=== PATIENT | female | born 1950 | race Caucasian/White ===

== ENCOUNTER 2021-03-21 14:44 | Emergency (ER) | payer MEDICARE, SELFPAY ==
--- NOTE | ~2021-03-21 | XR_ITS ---
XR hip LT 2V w AP pelvis 03/21/2021 17:02 INDICATION: Acute pain after fall PROCEDURE: 3 views left hip including AP pelvis COMPARISON: No prior studies for comparison. FINDINGS: Fracture, dislocation or subluxation is not identified. Pelvic rings intact. Sacral foramen are symmetric. There are degenerative changes of the lower lumbar spine and hips. The soft tissues a ppear within normal limits. No foreign bodies are identified. IMPRESSION: 1: NO ACUTE BONE OR JOINT ABNORMALITY IDENTIFIED. Reviewed, dictated and finalized at location A.
--- NOTE | ~2021-03-21 | XR_ITS ---
[XR ribs LT 2V w CXR 2V ] INDICATION: Left rib pain after fall TECHNIQUE: Frontal projection of the upper left ribs, frontal projection of the lower left ribs, obli que projection of all the left ribs, frontal inspiratory chest x-ray for interpretation. FINDINGS: There are no acute displaced rib fractures identified. There is a healed left eighth rib f racture. There is moderate thoracic spondylosis with accentuated kyphosis. There are no soft tissue a bnormality seen. The lungs are clear. IMPRESSION: 1:No acute displaced rib fractures. Reviewed, dictated and finalized at location A.
--- NOTE | ~2021-03-21 | CT_ITS ---
EXAMINATION: CT brain wo con DATE: 03/21/2021 16:40 INDICATION: Head trauma. Laceration. Parkinson's disease. TECHNIQUE: Computed tomography (CT) of the head was performed without intravenous contrast. The dose- length product was 605.33 mGy-cm. Automated exposure control and iterative reconstruction technique w ere employed. COMPARISON: CT dated 10/29/2018 FINDINGS: Brain parenchymal volume is normal for age. There are scattered mild periventricular and edwards bcortical white matter changes, most likely related to small vessel ischemic disease (microangiopathy ). No ventriculomegaly or midline shift. 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 No acute intracranial hemorrhage, infarction, mass or mass effect. There is a chronic lacunar infarction of t he right subinsular white matter. There is moderate mucosal thickening of the paranasal sinuses with mucoperiosteal reaction. Mastoids are pneumatized. No depressed skull fractures. IMPRESSION: 1. No acute intracranial abnormality. 2: Moderate chronic sinus disease. 3: Chronic right lacunar infarction. 4: Chronic age-related findings. Reviewed, dictated and finalized at location A.
[2021-03-21 15:38] VITALS: BP 143/108; PULSE 71; RESP 16; TEMP 36.9; O2SAT 96
--- NOTE | 2021-03-21 18:43 | ED.GENADULT ---
HPI - General Adult General Chief complaint: Head Injury Stated complaint: fall, head trauma Time Seen by Provider: 03/21/21 16:15 History of Present Illness HPI narrative: Patient is a 70-year-old female who presents ER with concerns for a fall. Patient has Parkinson's and was walking with a rolling walker when she fell. She struck her head. No loss of consciousness. She has a 1 cm laceration to her posterior scalp. Patient is shaking very violently as she has not yet taken her Parkinson's medications. She also reports left chest wall pain that is worse with moving and deep breaths. She also is reporting some left hip pain but there is no shortening or rotation. Related Data Allergies Allergy/AdvReac Type Severity Reaction Status Date / Time Penicillins Allergy Unknown Verified 07/09/17 18:55 codeine AdvReac Unknown Verified 07/09/17 18:55 Review of Systems Review of Systems: All systems reviewed & are unremarkable except as noted in HPI and below Constitutional: Constitutional: Denies chills, Denies fever(s) and Denies weakness Cardiovascular: Cardiovascular: Denies rapid heart rate and Denies radiating jaw, neck or arm pain Comments: Chest wall pain Gastrointestinal: Gastrointestinal: Denies abdominal pain, Denies nausea and Denies vomiting Musculoskeletal: Musculoskeletal: Denies back pain, Reports arthralgias and Denies joint swelling Neurologic: Denies focal weakness, Denies numbness and Denies weakness Comments: Diffuse tremors. [facility] Past Medical History Medical History (Updated 03/21/21 @ 19:01 by Brett Calderon MD) Parkinsons disease Surgical History Surgical History (Updated 03/21/21 @ 19:02 by Brett Calderon MD) History of splenectomy Hx of tonsillectomy Social History Social History (Updated 03/21/21 @ 19:03 by Brett Calderon MD) Smoking status: Never smoker Exam Narrative: GENERAL: Chronically ill-appearing, well-nourished, and diffusely tremulous. HEAD: Normocephalic, severe posterior scalp laceration. EYES: PERRL and EOMI. CHEST: Clear to auscultation. No respiratory distress. Contusion abrasion left chest wall. HEART: Regular rate and rhythm. Normal peripheral pulses. EXTREMITIES: Normal range of motion. No edema. SKIN: Warm, dry, no rash. NEURO: Parkinsonian tremor in arms and legs. Alert and oriented x3. PSYCH: Normal mood and affect. Course Course Emergency Course: Wound repaired. Discharge home. Vital Signs Vital signs: Vital Signs Temperature 98.5 F 03/21/21 15:38 Pulse Rate 71 03/21/21 15:38 Respiratory Rate 16 03/21/21 15:38 Blood Pressure 143/108 H 03/21/21 15:38 Pulse Oximetry 96 03/21/21 15:38 Temperature 98.5 F 03/21/21 15:38 Pulse Rate 71 03/21/21 15:38 Respiratory Rate 16 03/21/21 15:38 Blood Pressure 143/108 H 03/21/21 15:38 Pulse Oximetry 96 03/21/21 15:38 Procedures Laceration Laceration 1: Date: 03/21/21 Time: 18:00 Site: scalp Size (cm): 1 Description: linear Depth: simple, single layer Local Anesthetic: none ====== Skin Level ====== Skin layer closed with: aki Number of sutures: 1 Technique: simple, interrupted ====== Subcutaneous Layer ====== ====== Muscle Layer ====== ====== Tendon Layer ====== Medical Decision Making Vital Signs Vital Signs: Vital Signs Temperature 98.5 F 03/21/21 15:38 Pulse Rate 71 03/21/21 15:38 Respiratory Rate 16 03/21/21 15:38 Blood Pressure 143/108 H 03/21/21 15:38 Pulse Oximetry 96 03/21/21 15:38 Temperature 98.5 F 03/21/21 15:38 Pulse Rate 71 03/21/21 15:38 Respiratory Rate 16 03/21/21 15:38 Blood Pressure 143/108 H 03/21/21 15:38 Pulse Oximetry 96 03/21/21 15:38 Discharge Plan Discharge Clinical Impression: Laceration of scalp, Chest wall contusion Patient Disposition: Home, Self-Care Condition: Stable Inst
== END 2021-03-21 19:16 | disposition home or self-care (01) ==
PROVIDERS: Emergency Provider Emergency Medicine; PCP Family Medicine
DX: S01.01XA Laceration without foreign body of scalp, initial encounter (principal); S20.212A Contusion of left front wall of thorax, initial encounter; G20 Parkinson's disease; Z90.81 Acquired absence of spleen; W18.39XA Other fall on same level, initial encounter
CPT/HCPCS: 12001; 70450; 71046; 71100; 73502; 99284

== ENCOUNTER 2021-11-23 20:19 | Emergency (ER) | payer OTHER, SELFPAY ==
[2021-11-23 20:46] VITALS: BP 100/57; PULSE 84; RESP 16; TEMP 36.6; O2SAT 98
[2021-11-23] MEDS: LIDOCAINE HCL 2% GEL UROJET 10 ML PKG MUCOUS MEM (21:46)
--- NOTE | 2021-11-23 22:42 | ED.WOUNDLAC ---
HPI - Wound/Laceration General Chief Complaint: Fall Stated Complaint: fall with laceration to buttock Time Seen by Provider: 11/23/21 21:32 History of Present Illness HPI narrative: 70-year-old female presenting after she slipped and fell onto her walker, the metal prong punctured her anus. Noted some bleeding, and came here. Denies any injuries anywhere else, denies any pain at this time. Related Data Allergies Allergy/AdvReac Type Severity Reaction Status Date / Time Penicillins Allergy Unknown Verified 07/09/17 18:55 codeine AdvReac Unknown Verified 07/09/17 18:55 Review of Systems Review of Systems: CONST: No fever. HEAD: No head trauma EYES: No blurry vision NECK: No neck pain C/V: No chest pain RESP: No difficulty breathing GI: Cut to anus : No dysuria. M/S: No joint pain. SKIN: Cut to anus NEURO: [No new focal numbness or weakness] PMFSH Past Medical History Medical History Parkinsons disease Surgical History Surgical History History of splenectomy Hx of tonsillectomy Social History Social History Smoking status: Never smoker Exam Narrative: EXAMINATION OF ORGAN SYSTEMS/BODY AREAS: Constitutional: Vital signs per nursing GENERAL:[No acute distress, non-toxic appearing.] HEAD: Normal with no signs of head trauma. NECK: no midline tenderness LUNGS: Nonlabored breathing. HEART: No chest tenderness ABD: [Soft], [nontender to palpation] EXT: Normal range of motion RECTAL: No tenderness on exam or puncture of rectal vault SKIN: 1cm linear laceration superior aspect of anus, superficial mucosa not penetrating sphincter NEURO: [Alert and oriented x 3. Very tremulous.] PSYCH: Normal affect Course Course Emergency Course: New 1-year-old female presenting with cut to her anus after falling on it, vital signs stable, exam shows superficial laceration to anus, low concern for nonaccidental trauma as patient herself verifies the story, given the gaping wound and my concern for infection I did feel it would benefit from closure, it is irrigated and well cleaned with chlorhexidine, skin glue used and wound well approximated. Patient tolerated procedure well, strict return precautions provided as well as how to care for anal fissure. Stable for discharge home and follow-up with her doctor as needed. Vital Signs Vital signs: Vital Signs Temperature 97.8 F 11/23/21 20:46 Pulse Rate 84 11/23/21 20:46 Respiratory Rate 16 11/23/21 20:46 Blood Pressure 100/57 L 11/23/21 20:46 Pulse Oximetry 98 11/23/21 20:46 Temperature 97.8 F 11/23/21 20:46 Pulse Rate 84 11/23/21 20:46 Respiratory Rate 16 11/23/21 20:46 Blood Pressure 100/57 L 11/23/21 20:46 Pulse Oximetry 98 11/23/21 20:46 Discharge Plan Discharge Clinical Impression: Anal sphincter tear Qualifiers: Encounter type: initial encounter Qualified Code(s): S31.831A - Laceration without foreign body of anus, initial encounter Patient Disposition: Home, Self-Care Condition: Improved Instructions: Antibiotic Form, Anal Fissure (ED), Laceration (ED) Prescriptions: New polyethylene glycol 3350 [Miralax] 17 gram/dose powder 17 g PO DAILY Qty: 238 RF: 0 Follow-up/Referrals: Nikolai,Emeka Dale MD [Primary Care Provider] -
== END 2021-11-23 23:02 | disposition home or self-care (01) ==
PROVIDERS: Emergency Provider Emergency Medicine; PCP Family Medicine
DX: S31.831A Laceration without foreign body of anus, initial encounter (principal); Z90.81 Acquired absence of spleen; W01.198A Fall on same level from slipping, tripping and stumbling with subsequent striking against other object, initial encounter
CPT/HCPCS: 12001; 99283

== ENCOUNTER 2022-07-05 09:41 | Emergency (ER) | payer OTHER, SELFPAY ==
[2022-07-05] VITALS (32 sets, daily range): BP systolic 98–168; BP diastolic 57–129; PULSE 55–97; RESP 16–29; TEMP 36.9; O2SAT 88–99
--- NOTE | ~2022-07-05 | CT_ITS ---
EXAMINATION: CT brain wo con DATE: 07/05/2022 14:45 INDICATION: fall . TECHNIQUE: Computed tomography (CT) of the head was performed without intravenous contrast. The mA wa s adjusted according to patient size. Iterative reconstruction technique was employed. The dose-lengt h product was 605.33 mGy-cm. COMPARISON: 03/21/2021. FINDINGS: No acute intracranial hemorrhage or extra-axial fluid collection. No hydrocephalus, mass, or herniation. No acute ischemic infarct. Unremarkable dural venous sinus attenuation. No acute osseous abnormality. The aerated spaces are clear. Mild atrophy and chronic white matter change. Atherosclerotic intracranial calcification. Basilar dol ichoectasia. Right insular encephalomalacia. IMPRESSION: No acute intracranial process. Reviewed, dictated and finalized at location K. OON ARTIST
--- NOTE | ~2022-07-05 | XR_ITS ---
EXAMINATION: XR chest 1V portable DATE: 07/05/2022 10:43 INDICATION: Syncope. Parkinson's disease. TECHNIQUE: frontal view of the chest was obtained. COMPARISON: Chest radiograph dated 03/21/2021 FINDINGS: Patient is rotated towards the right. Chronic pleural parenchymal scarring at the left costophrenic a ngle alongside old left-sided rib fractures. No other airspace opacities, pulmonary edema, pleural ef fusion or pneumothorax. Cardiomegaly. Proximal right humeral fracture with malunion and severe second harini glenohumeral osteoarthritis. IMPRESSION: 1. Chronic mild pleural parenchymal scarring at the left costophrenic angle. No acute cardiopulmonary disease. Reviewed, dictated and finalized at location A. F WHARFINGER
--- NOTE | 2022-07-05 10:24 | ECG_ITS ---
Measurements Intervals [place] Rate: 60 P: 28 MA: 131 QRS: 26 QRSD: 92 T: 31 QT: 417 QTc: 419 Interpretive Statements SINUS RHYTHM NORMAL ECG NO PREVIOUS ECG AVAILABLE FOR COMPARISON Electronically Signed On 07-05-2022 15:52:08 [employer]ER GRINDER by Faisal Elizalde M.D.
[2022-07-05] MEDS: SODIUM CHLORIDE 0.9% IV 1,000 ML 999 ML IV CONT (10:39)
--- NOTE | 2022-07-05 10:45 | ED.SYNCOPE ---
HPI - Syncope General Chief Complaint: Syncope Stated Complaint: near syncope Time Seen by Provider: 07/05/22 10:06 History of Present Illness HPI narrative: Patient is a 71-year-old female with a history of Parkinson's presenting after a syncopal episode. Patient states that she was sitting when she became nauseated and felt generally weak. According to her family she then slumped forward and slowly fell to the ground. Her states that she seemed confused as they helped her up so they called EMS. By the time EMS arrived, she was back to her normal mental status and was without complaint. Patient states that she does not currently feel nauseated. She denies any chest pain, shortness of breath, palpitations. Denies recent fevers or chills, headache, numbness or weakness, abdominal pain, vomiting, diarrhea, leg swelling, dysuria. Related Data Allergies Allergy/AdvReac Type Severity Reaction Status Date / Time Penicillins Allergy Unknown Verified 07/09/17 18:55 codeine AdvReac Unknown Verified 07/09/17 18:55 Review of Systems Review of Systems: All systems reviewed & are unremarkable except as noted in HPI and below PMFSH Past Medical History Medical History Parkinsons disease Surgical History Surgical History History of splenectomy Hx of tonsillectomy Social History Social History Smoking status: Never smoker Exam Narrative: GENERAL: Elderly female lying in bed with parkinsonian movements HEAD: Normocephalic, atraumatic. EYES: PERRLA and EOMI. ENT: Nares clear, no rhinorrhea or epistaxis. Mucous membranes dry. NECK: Supple. CHEST: Clear to auscultation. No respiratory distress. HEART: Regular rate and rhythm. No murmur heard. Normal peripheral pulses. ABDOMEN: Soft, nontender, nondistended, normal active bowel sounds. EXTREMITIES: Normal range of motion. No edema. SKIN: Warm, dry, no rash. NEURO: No focal deficits. Alert and oriented x3. PSYCH: Normal mood and affect. Course Vital Signs Vital signs: Vital Signs Temperature 98.5 F 07/05/22 09:52 Pulse Rate 63 07/05/22 09:52 Respiratory Rate 20 07/05/22 09:52 Blood Pressure 98/64 L 07/05/22 09:52 Pulse Oximetry 96 07/05/22 09:52 Oxygen Delivery Room Air 07/05/22 09:52 Temperature 98.5 F 07/05/22 09:52 Pulse Rate 60 07/05/22 15:31 Respiratory Rate 20 07/05/22 15:31 Blood Pressure 120/71 07/05/22 15:31 Pulse Oximetry 98 07/05/22 15:31 Oxygen Delivery Room Air 07/05/22 09:52 MDM - Syncope MDM Narrative Medical decision making narrative: Patient is a 71-year-old female presenting after a syncopal episode. Patient initially had some soft pressures in the 90s over 60s. Vitals were otherwise within normal limits. Patient does describe a prodrome prior to the syncopal episode characterized by some nausea and lightheadedness. She denies any chest pain or shortness of breath. EKG shows sinus rhythm, normal axis and intervals, no acute ischemic changes. Blood work is unremarkable. Patient received some fluids and her pressures are much improved. Patient feels well and denies recurrence of any symptoms. Advised that she try to increase her fluid intake. Suspect she had an episode of orthostatic hypotension versus vasovagal given the prodrome. Recommended close PCP follow-up. Appropriate return precautions were given. Patient voiced understanding is agreeable with plan. Discharged in stable condition. Lab Data 07/05/22 10:50 07/05/22 10:50 Labs: Lab Results 07/05/22 07/05/22 07/05/22 Range/Units 10:50 10:50 10:50 WBC 8.9 (4.5-10.0) K/mm3 RBC 4.03 L (4.2-5.4) M/mm3 Hgb 12.9 (12.0-15.0) g/dL Hct 38.1 (37.0-47.0) % MCV 94.5 (80-100) fl MCH 32.0 (26-34) pg MCHC 33.9
[2022-07-05 10:55] LABS: Basophils Percent Auto 0.3 % (0.2-1.2); Eosinophils Absolute Auto 0.2 K/mm3 (0-0.3); Eosinophils Percent Auto 2.3 % (0-4.4); Hematocrit 38.1 % (37.0-47.0); Hemoglobin 12.9 g/dL (12.0-15.0); Immature Granulocyte Absolute 0.03 K/mm3 (0.00-0.031); Immature Granulocyte Percent A 0.3 % (0-0.5); Lymphocytes Absolute Auto 0.74 K/mm3 (0.9-3.2); Lymphocytes Percent Auto 8.4 % (18.3-44.2); Mean Corpuscular HGB Conc 33.9 g/dl (32-36); Mean Corpuscular Volume 94.5 fl (80-100); Mean Platelet Volume 10.6 fl (7.4-10.4); Monocytes Absolute Auto 0.7 K/mm3 (0.1-0.6); Monocytes Percent Auto 7.5 % (2.6-8.5); Neutrophils Absolute Auto 7.2 K/mm3 (1.3-6.7); Neutrophils Percent Auto 81.2 % (45.5-73.1); Platelet Count Result 284 k/mm3 (150-375); Red Blood Count 4.03 M/mm3 (4.2-5.4); Red Cell Distribution Width 13.7 % (11.5-14.5); White Blood Count 8.9 K/mm3 (4.5-10.0)
[2022-07-05 11:10] LABS: Alanine Aminotransferase 7 U/L (6-35); Alkaline Phosphatase 64 U/L (38-126); Anion Gap 3 mmol/L (8-16); Aspartate Amino Transferase 17 U/L (14-36); Bilirubin,Total 0.8 mg/dL (0.2-1.3); Blood Urea Nitrogen 12 mg/dL (7-17); Calcium 8.8 mg/dL (8.4-10.2); Carbon Dioxide 32 mmol/L (22-30); Chloride 105 mmol/L (98-107); Estimated Glomerular Filt Rate > 60; Glucose 94 mg/dL (65-110); Lactic Acid Reflex 1.1 mmol/L (0.7-2.0); Magnesium 2.2 mg/dL (1.6-2.3); Potassium 3.8 mmol/L (3.4-5.0); Sodium 140 mmol/L (137-145)
[2022-07-05 11:16] LABS: INR 1.1; Partial Thromboplastin Time 26.9 SECONDS (22.3-36.8); Prothrombin Time 13.7 Seconds (11.1-14.7)
[2022-07-05 11:22] LABS: NT Pro B Type Natriuretic Pept 183 pg/mL (5-100); Troponin I < 0.012 ng/mL (0.000-0.034)
--- NOTE | 2022-07-05 12:57 | PC.NURSE ---
gave some apple sauce and pudding to accommodate pt needs for home Meds.
[2022-07-05 14:28] LABS: Add Urine Microscopic? NO; Appearance Urine Clear (Clear); Bilirubin Urine Negative (Negative); Blood Urine Negative (Negative); Color Urine Light Yellow (Yellow); Glucose Urine UA Negative (Negative); Ketones Urine Negative (Negative); Leukocyte Esterase Ur Negative LEU/UL (Negative); Nitrate Urine Negative (Negative); Protein Urine Negative (Negative)
== END 2022-07-05 17:12 | disposition home or self-care (01) ==
PROVIDERS: Emergency Provider Emergency Medicine; PCP Family Medicine
DX: R55 Syncope and collapse (principal); G20 Parkinson's disease
CPT/HCPCS: 36415; 70450; 71045; 80053; 81003; 83605; 83735; 83880; 84484; 85025; 85610; 85730; 93005; 96360; 99284; J7030

== ENCOUNTER 2022-11-05 10:31 | Emergency (ER) | payer OTHER, SELFPAY ==
[2022-11-05] VITALS (31 sets, daily range): BP systolic 84–161; BP diastolic 47–124; PULSE 57–97; RESP 17–35; TEMP 36.4–36.6; O2SAT 88–100
--- NOTE | ~2022-11-05 | XR_ITS ---
. EXAMINATION: XR hip RT 2V w AP pelvis INDICATION: Hip pain TECHNIQUE: AP view the pelvis and two views of the right hip are obtained. COMPARISON: 03/21/2021 FINDINGS: Bone alignment is normal. There is no fracture. There is mild osteoarthritis of the hips. M oderate spondylosis is noted in the lower lumbar spine. IMPRESSION: 1. No acute osseous abnormality. Reviewed, dictated and finalized at location L.
--- NOTE | ~2022-11-05 | CT_ITS ---
EXAMINATION: CT brain wo con INDICATION: Increased weakness COMPARISON: TECHNIQUE: Standard unenhanced head CT. The dose-length product (DLP) was 681.00 mGy-cm. The mA was a djusted according to patient size. Iterative reconstruction technique was employed. FINDINGS: There is no acute intraparenchymal hemorrhage. No evidence of mass lesion. No evidence of a cute infarction. There is an old right cerebellar infarct. There is mild periventricular and subcorti lori hypodensity probably related to small vessel ischemic disease. There is mild prominence of the edwards lci and ventricles related to cerebral atrophy. Intracranial calcified cerebral atherosclerosis is no diana. There are no extra-axial collections. There is no mass effect or midline shift. There is a polyp or mucous retention cyst right maxillary sinus. The visualized sinuses and mastoid air cells are wel l aerated. IMPRESSION: 1. No acute intracranial abnormality. 2. Age related findings. Reviewed, dictated and finalized at location L.
--- NOTE | 2022-11-05 10:40 | ECG_ITS ---
Measurements Intervals [place] Rate: 60 P: 8 IN: 134 QRS: 5 QRSD: 105 T: 30 QT: 429 QTc: 432 Interpretive Statements SINUS RHYTHM NONSPECIFIC ST AND T-WAVE ABNORMALITY BASELINE ARTIFACT PRESENT COMPARED TO ECG 07/05/2022 09:52:09 NO SIGNIFICANT CHANGES Electronically Signed On 11-05-2022 11:58:59 CDT by Verona Abernathy M.D.
[2022-11-05 10:56] LABS: Glucose Point of Care 118 mg/dl (65-105)
--- NOTE | 2022-11-05 11:04 | ED.WEAKNESS ---
HPI - Weakness General Chief complaint: Weakness Stated complaint: weakness Time Seen by Provider: 11/05/22 10:54 History of Present Illness HPI Narrative: 71-year-old female with a history of Parkinson's disease here for evaluation of weakness today. Patient lives at home with her who is her primary caregiver. She had been doing well until today when she had required maximal assistance with transfers and has been complaining of generalized weakness. She has had multiple falls at home over the past several weeks. Patient states that she feels generally ill, was having some right hip pain this morning that has since subsided. Has not been eating or drinking her normal amount. She has been compliant with her medicines. She states this is happened in the past and has been attributed to dehydration, states that she feels better after IV fluid administration. Related Data Allergies Allergy/AdvReac Type Severity Reaction Status Date / Time Penicillins Allergy Unknown Unknown Verified 11/05/22 10:52 codeine AdvReac Unknown Unknown Verified 11/05/22 10:52 Review of Systems Review of Systems: Gen.: Reports generalized weakness Eyes: Denies eye pain or visual change ENT: Denies congestion Respiratory: Denies shortness of breath or cough CV: Denies chest pain or palpitations GI: Denies abdominal pain nausea, emesis or diarrhea denies burning, urgency, frequency or hematuria Musculoskeletal: Denies back pain or muscle pain Neuro: Denies numbness, tingling, weakness or focal weakness Skin: Denies rash Except as documented, all other systems reviewed and negative [facility] Past Medical History Medical History Parkinsons disease Surgical History Surgical History History of splenectomy Hx of tonsillectomy Social History Social History Smoking status: Never smoker Exam Narrative: APPEARANCE: Chronically ill-appearing, resting tremor Head: Normocephalic and atraumatic. EYES: PERRLA/EOMI, conjunctivae clear NOSE: No nasal drainage EARS: External ear normal in appearance THROAT: Oropharynx is clear. Mucous membranes are moist. NECK: Supple. No adenopathy, no masses. RESPIRATORY: Airway patent, respirations nonlabored. Clear to auscultation bilaterally, no rales, rhonchi, wheezing. CARDIOVASCULAR: Regular rate and rhythm without murmurs, rubs, or gallops. ABDOMINAL: Normoactive bowel sounds. Soft, nontender, nondistended. No rebound tenderness or guarding. MUSCULOSKELETAL: Extremities are warm and well-perfused. Moves all extremities well. No edema. NEURO: Slurred speech, patient states is chronic. Resting tremor in the upper extremities and face. SKIN: Skin is warm and dry. No rashes. PSYCHIATRIC: Normal affect/mood. Course Vital Signs Vital signs: Vital Signs Temperature 97.8 F 11/05/22 10:33 Pulse Rate 94 11/05/22 10:33 Respiratory Rate 18 11/05/22 10:33 Blood Pressure 84/47 L 11/05/22 10:33 Pulse Oximetry 98 11/05/22 10:33 Oxygen Delivery Room Air 11/05/22 10:33 Temperature 97.6 F 11/05/22 14:54 Pulse Rate 77 11/05/22 15:37 Respiratory Rate 22 H 11/05/22 15:37 Blood Pressure 104/61 11/05/22 15:37 Pulse Oximetry 92 11/05/22 15:37 Oxygen Delivery Room Air 11/05/22 10:33 MDM - Weakness MDM Narrative Medical decision making narrative: 71-year-old female with a history of Parkinson's disease here with her who is her caregiver from home due to generalized weakness x1 day. Patient is chronically ill-appearing with resting tremulousness. BP initially slightly soft at 84/47, remainder of vital signs are normal. urine does appear infected. CT brain without acute findings. Basic labs unremarkable aside from an elevation in her BUN likely due to dehydration. Patient was starte
[2022-11-05 11:22] LABS: Basophils Percent Auto 0.3 % (0.2-1.2); Eosinophils Absolute Auto 0.1 K/mm3 (0-0.3); Eosinophils Percent Auto 1.3 % (0-4.4); Hematocrit 38.4 % (37.0-47.0); Hemoglobin 13.2 g/dL (12.0-15.0); Immature Granulocyte Absolute 0.02 K/mm3 (0.00-0.031); Immature Granulocyte Percent A 0.3 % (0-0.5); Lymphocytes Absolute Auto 0.76 K/mm3 (0.9-3.2); Lymphocytes Percent Auto 9.8 % (18.3-44.2); Mean Corpuscular HGB Conc 34.4 g/dl (32-36); Mean Corpuscular Hemoglobin 32.4 pg (26-34); Mean Corpuscular Volume 94.3 fl (80-100); Mean Platelet Volume 10.8 fl (7.4-10.4); Monocytes Absolute Auto 0.6 K/mm3 (0.1-0.6); Monocytes Percent Auto 7.9 % (2.6-8.5); Neutrophils Absolute Auto 6.2 K/mm3 (1.3-6.7); Neutrophils Percent Auto 80.4 % (45.5-73.1); Platelet Count Result 255 k/mm3 (150-375); Red Blood Count 4.07 M/mm3 (4.2-5.4); Red Cell Distribution Width 13.5 % (11.5-14.5); White Blood Count 7.7 K/mm3 (4.5-10.0)
[2022-11-05] MEDS: SODIUM CHLORIDE 0.9% IV 1,000 ML 999 ML IV CONT ×2 (11:28→12:32)
[2022-11-05 11:32] LABS: Lactic Acid Reflex 1.3 mmol/L (0.7-2.0)
[2022-11-05 11:33] LABS: Alanine Aminotransferase 9 U/L (6-35); Albumin Level 3.9 g/dL (3.5-5.1); Alkaline Phosphatase 51 U/L (38-126); Anion Gap 6 mmol/L (8-16); Aspartate Amino Transferase 19 U/L (14-36); Bilirubin,Total 1.2 mg/dL (0.2-1.3); Blood Urea Nitrogen 20 mg/dL (7-17); Calcium 9.1 mg/dL (8.4-10.2); Carbon Dioxide 31 mmol/L (22-30); Chloride 105 mmol/L (98-107); Estimated Glomerular Filt Rate > 60; Glucose 115 mg/dL (65-110); Potassium 3.6 mmol/L (3.4-5.0); Sodium 142 mmol/L (137-145)
[2022-11-05 11:52] LABS: Appearance Urine Clear (Clear); Bacteria Urine 4+ /hpf; Bilirubin Urine Negative (Negative); Blood Urine Negative (Negative); Color Urine Yellow (Yellow); Glucose Urine UA Negative (Negative); Ketones Urine Trace mg/dL (Negative); Leukocyte Esterase Ur 2+ LEU/UL (Negative); Need Manual Microscopic Reviewed; Nitrate Urine Negative (Negative); Protein Urine Trace mg/dL (Negative); RBC Urine 0-2 /hpf (0-2); Specific Grav Ur 1.015 (1.001-1.035); Squamous Epithelial Cell Urine None seen /hpf (Few); WBC Urine 21-50 /hpf
[2022-11-05 11:56] LABS: Add Urine Microscopic? YES
--- NOTE | 2022-11-05 12:10 | PC.NURSE ---
Pt's daughter called and states this has been an ongoing problem and would like pt to be admitted over night.
== END 2022-11-05 15:50 | disposition home or self-care (01) ==
PROVIDERS: Emergency Medicine; Emergency Provider Physician Assistant; PCP Family Medicine
DX: N39.0 Urinary tract infection, site not specified (principal); R53.1 Weakness; G20 Parkinson's disease; Z90.81 Acquired absence of spleen; R94.31 Abnormal electrocardiogram [ECG] [EKG]
CPT/HCPCS: 36415; 70450; 73502; 80053; 81001; 82948; 83605; 85025; 87040; 87086; 93005; 96361; 96365; 99284; J0696; J7030

== ENCOUNTER 2024-06-16 21:16 | Inpatient (IN) | payer MEDICARE, SELFPAY ==
[2024-06-16] VITALS (13 sets, daily range): BP systolic 39–137; BP diastolic 24–76; PULSE 68–136; RESP 16–31; TEMP 35.7–36.6; O2SAT 20–99
--- NOTE | ~2024-06-16 | CT_ITS ---
EXAMINATION: CT cervical spine wo con DATE: 06/17/2024 00:16 INDICATION: Neck injury. Fall. TECHNIQUE: Computed tomography (CT) of the cervical spine was performed without intravenous contrast. Automated exposure control and iterative reconstruction technique were employed. The dose-length pro duct was 67.90 mGy-cm. COMPARISON: CT cervical spine 08/27/2018 FINDINGS: There is a right pneumothorax. Bone alignment is normal. Vertebral body heights are normal. There is moderately decreased disc height at C5-C6 and mildly decreased disc height at C6-C7. The fo llowing disc levels are specifically discussed: C2-C3: There is no uncovertebral joint osteoarthritis. There is moderate bilateral facet joint osteoa rthritis. There is no neural foraminal stenosis. There is no central canal stenosis. C3-C4: There is mild right and moderate left uncovertebral joint osteoarthritis. There is moderate ri ght and severe left facet joint osteoarthritis. There is mild left neural foraminal stenosis. There i s no central canal stenosis. C4-C5: There is mild bilateral uncovertebral joint osteoarthritis. There is severe bilateral facet juan f int osteoarthritis. There is no neural foraminal stenosis. There is no central canal stenosis. C5-C6: There is moderate bilateral uncovertebral joint osteoarthritis. There is moderate right and se elaine left facet joint osteoarthritis. There is mild bilateral neural foraminal stenosis. There is mil d central canal stenosis. C6-C7: There is no uncovertebral joint osteoarthritis. There is mild right and moderate left facet juan f int osteoarthritis. There is no neural foraminal stenosis. There is mild central canal stenosis. C7-T1: There is no uncovertebral joint osteoarthritis. There is moderate bilateral facet joint osteoa rthritis. There is no neural foraminal stenosis. There is no central canal stenosis. IMPRESSION: 1. No fracture. 2. Moderate cervical spondylosis. 3. Right pneumothorax. Reviewed, dictated and finalized at location A. PER SETTER
--- NOTE | ~2024-06-16 | CT_ITS ---
EXAMINATION: CT chest abdomen pelvis wo con DATE: 06/17/2024 00:17 INDICATION: Cardiac arrest. TECHNIQUE: Computed tomography (CT) of the chest, abdomen, and pelvis was performed without intraveno us contrast. Automated exposure control and iterative reconstruction technique were employed. The dos e-length product was 233.58 mGy-cm. COMPARISON: None FINDINGS: CHEST CT: There is a moderate-sized right pneumothorax. There are patchy airspace opacities in right lung. Ther e is mild atelectasis in lingula. There are airspace opacities and volume loss in left lower lobe. No pleural effusion. The heart size is normal. There are coronary artery calcifications. No pericardial effusion. The endotracheal tube tip is in expected position. There is thoracic kyphosis and moderate spondylosis. There are old healed bilateral rib fractures. ABDOMEN/PELVIS CT: The liver is normal. The spleen is absent. The pancreas and adrenal glands are normal. There are hype rdense cysts in the kidneys measuring up to 12 mm on the right. There is an 18 mm cyst in right kidne y. The bladder is decompressed by a Rubin catheter. There are no dilated loops of bowel. The appendix is normal. There are no pathologically enlarged lymph nodes. There is no free intraperitoneal fluid. There is a central venous catheter tip in right common iliac vein. There is mild lumbar spondylosis. IMPRESSION: 1. Moderate-sized right pneumothorax. 2. Diffuse lung disease, consistent with pneumonia. Reviewed, dictated and finalized at location A. CE DEPARTMENT SECRETARY
--- NOTE | ~2024-06-16 | CT_ITS ---
CT brain wo con Ordering provider: Will Jason MD History: 73 years Female with . altered mental status . Comparison: September 07, 2022 Technique: CT of the head without contrast. Radiation reduction technique utilized.The dose-length pr oduct was 681 mGy-cm. FINDINGS: BRAIN PARENCHYMA AND CSF SPACES: Mild leukoaraiosis and diffuse cortical atrophy. Mild atheromatous d isease. 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 No midline shift, mass effect or hemorrhage. The br ain parenchyma and CSF spaces are otherwise normal. VISUALIZED PARANASAL SINUSES: Well aerated. MASTOIDS: Well aerated. BONES: The bones appear intact. SOFT TISSUES: Visualized nasopharynx is normal. Superficial soft tissues are normal. IMPRESSION: No acute intracranial findings. Reviewed, dictated and finalized at location A. Y LEVEL ELECTRICIAN
--- NOTE | ~2024-06-16 | XR_ITS ---
XR chest ET placement Ordering provider: Will Jason MD History: 73 years Female with . ET PLACEMENT . Comparison: June 16, 2024 at 9:24 PM. FINDINGS: MEDIASTINUM: The cardiac silhouette is slightly enlarged. Repositioning of the endotracheal tube with the tip above the danny by about 1.9 cm. LUNGS: Improved aeration of the left lung is noted. Opacification in the right lower lobe areas seen suggestive of pneumonia. Edema cannot be excluded. Lucency in the right costophrenic angle is still seen with still raises the possibility of pneumothor ax. Similar appearances seen in the right apical area. Follow-up advised. Repeat exam after 2 hours i s advised. OTHER: No free air under the diaphragm. Fracture in the ninth is seen which may be acute or old IMPRESSION: Lucency in the costophrenic angle. Similar appearances also seen in the right apical area. A repeat e xam in 2 hours is advised. Improved aeration of the left lung. Bilateral lower lobe pneumonia. Dr. Jason was notified with the result of the patient. 10:35 PM on June 16, 2024. Reviewed, dictated and finalized at location A. AMBASSADOR IMPRESSION: Lucency in the costophrenic angle. Similar appearances also seen in the right a pical area. A repeat exam in 2 hours is advised. Improved aeration of the left lung. Bilateral lower lobe pneumonia. Dr. Jason was notified with the result of the patient. 10:35 PM on June 16, 2024.
--- NOTE | ~2024-06-16 | XR_ITS ---
XR chest ET placement Ordering provider: Will Jason MD History: 73 years Female with . CARDIAC ARREST . Comparison: July 05, 2022 FINDINGS: MEDIASTINUM: The cardiac silhouette is slightly enlarged. The endotracheal tube is seen in the right main bronchus. Retraction is advised. LUNGS: Hyperinflated the right lung with Possibility of pneumothorax in the right costophrenic angle is not excluded.. Repeat exam after repositioning of the endotracheal tube is advised. Possibility of right apical pneumothorax also cannot be excluded. Near Complete opacification of the left lung is n oted which may indicate atelectasis versus pneumonia. Hyperinflation of the right lung is seen. OTHER: No free air under the diaphragm. IMPRESSION: Possible pneumothorax in the right costophrenic angle and apical area. Opacification of the left lung which may indicate atelectasis. Repositioning of the endotracheal tube is noted. Reviewed, dictated and finalized at location A. TEGIC ADVISOR IMPRESSION: Possible pneumothorax in the right costophrenic angle and apical area. Opacific ation of the left lung which may indicate atelectasis. Repositioning of the endotracheal tube is noted.
--- NOTE | ~2024-06-16 | XR_ITS ---
EXAMINATION: XR abdomen gastric tube insert DATE: 06/17/2024 06:06 INDICATION: Orogastric tube placement. TECHNIQUE: An upright view of the abdomen was obtained. COMPARISON: Chest single view at 2:08 AM FINDINGS: The lower abdomen is excluded. There are no dilated loops of bowel. The nasogastric tube ti p is in the stomach. There are airspace opacities in the mid and lower lung zones. No pleural effusio n. The endotracheal tube tip is 4.4 cm above the danny. There is gas in right chest wall. IMPRESSION: 1. Nasogastric tube tip in the stomach. 2. Airspace opacities in the mid and lower lung zones, consistent with pneumonia. Reviewed, dictated and finalized at location A. CART PEDDLER IMPRESSION: 1. Nasogastric tube tip in the stomach. 2. Airspace opacities in the mid and lower lung zones, consistent with pneumoni a.
--- NOTE | ~2024-06-16 | XR_ITS ---
EXAMINATION: XR chest-chest tube insert/pos DATE: 06/17/2024 02:13 INDICATION: Right pneumothorax. TECHNIQUE: A single frontal view of the chest was obtained. COMPARISON: Chest single view 06/16/2024 FINDINGS: There are patchy airspace opacities in all lung zones bilaterally. No pleural effusion or p neumothorax. A right-sided chest tube is noted. The heart size is normal. No fracture can tube tip is 2.7 cm above the danny. There are old healed bilateral rib fractures. There is an old healed fractu re of proximal right humerus. IMPRESSION: 1. No pneumothorax. Right-sided chest tube in expected position. 2. Diffuse lung disease, consistent with pneumonia. Reviewed, dictated and finalized at location A. MACHINE OPERATOR
--- NOTE | 2024-06-16 21:26 | PC.NURSE ---
upon patient arrival. et tube was shifted by edp dr. munoz due to unequal chest rise and fall and poor oxygen saturation. rt at bedside. edp dr. munoz adjusted ET tube at 2127. positive color change noted, et tube is 22 @ the lip. rt is mechanically being bagged. pt vital signs at 2134 were 140 HR, 98% BVM, 22RR, and bp of 73/50. pt acess is still IO. norepi was started per edp dr. munoz at 10mg through IO. edp dr. munoz stated a central line was to be placed. Iv established in the left forearm 18 guage. labs drawn at this time.
--- NOTE | 2024-06-16 21:39 | ECG_ITS ---
Test Date: 2024-06-16 21:56:52 Measurements Intervals [place] Rate: 126 P: 84 UT: 105 QRS: 14 QRSD: 99 T: 98 QT: 354 QTc: 513 Interpretive Statements SINUS TACHYCARDIA WITH SHORT UT INTERVAL WITH OCCASIONAL SUPRAVENTRICULAR PREMATURE COMPLEXES NONSPECIFIC T-WAVE ABNORMALITY No previous ECG available for comparison Electronically Signed On 06-17-2024 14:30:14 FLEXO OPERATOR by Sanjay Pinon M.D.
[2024-06-16 21:56] LABS: Hematocrit 29.5 % (37.0-47.0); Hemoglobin 8.8 g/dL (12.0-15.0); Immature Platelet Fraction Pct 7.1 % (0.9-11.2); Mean Corpuscular HGB Conc 29.8 g/dl (32-36); Mean Corpuscular Hemoglobin 19.9 pg (26-34); Mean Corpuscular Volume 66.6 fl (80-100); Mean Platelet Volume 10.3 fl (7.4-10.4); Platelet Count Result 257 k/mm3 (150-375); Red Blood Count 4.43 M/mm3 (4.2-5.4); Red Cell Distribution Width 23.1 % (11.5-14.5); White Blood Count 12.8 K/mm3 (4.5-10.0)
[2024-06-16] MEDS: NOREPINEPHRINE 8 MG/D5W 250 ML 8 MG/250 ML BAG 18.8 MG (21:59)
[2024-06-16] MEDS: SODIUM CHLORIDE 0.9% IV 1,000 ML 999 ML IV CONT (22:00)
[2024-06-16 22:09] LABS: Alanine Aminotransferase 18 U/L (6-35); Albumin Level 3.7 g/dL (3.5-5.1); Alkaline Phosphatase 76 U/L (38-126); Anion Gap 12 mmol/L (4-12); Aspartate Amino Transferase 30 U/L (14-36); Bilirubin,Total 1.2 mg/dL (0.2-1.3); Blood Urea Nitrogen 37 mg/dL (7-17); Calcium 9.5 mg/dL (8.4-10.2); Carbon Dioxide 23 mmol/L (22-30); Chloride 108 mmol/L (98-107); Estimated CRCL calculation 23 ml/min; Estimated Glomerular Filt Rate 49; Glucose 197 mg/dL (65-110); Potassium 3.4 mmol/L (3.4-5.0); Sodium 143 mmol/L (137-145)
[2024-06-16 22:10] LABS: Alveolar/Arterial O2 Gradient 589.6 mmHg; Base Excess ABG -4.3 mEq/l (+/-2.0); Fractional Inspired Oxygen 100 %; HCO3 ABG 22.5 mEq/l (22.0-26.0); Oxygen Content ABG 12.5 %vol (16.0-22.0); PCO2 ABG 49.1 mmHg (35.0-45.0); PO2 ABG 74.3 mmHg (80.0-100.0); PO2 FiO2 Ratio Arterial Blood 0.74 %; Total Hemoglobin 9.7 g/dL (12.0-18.0)
[2024-06-16 22:11] LABS: Device VENTILATOR; Modified Allen's Test Pass; Site Drawn RIGHT RADIAL
[2024-06-16 22:13] LABS: pH ABG 7.278 (7.350-7.450)
--- NOTE | 2024-06-16 22:13 | ED_ITS ---
HPI - General Adult General Chief complaint: Cardiac Arrest/CPR Stated complaint: post-arrest, intubated Time Seen by Provider: 06/16/24 21:51 History of Present Illness HPI narrative: Patient 73-year-old female who presents emergency department with chief complaint of post cardiac arrest. Patient has history of Parkinson's and has apparently been getting weaker lately patient was found slumped over by EMS and had not really been doing much activity for approximately 1 hour patient had no pulse when EMS arrived they started compressions and intubated the patient they had a difficult time getting any kind of saturations they did have positive end- tidal CO2 the patient had return of spontaneous circulation after receiving epi and CPR patient was unresponsive upon arrival to the emergency department Related Data Allergies Allergy/AdvReac Type Severity Reaction Status Date / Time Penicillins Allergy Unknown Unknown Verified 11/05/22 10:52 codeine AdvReac Unknown Unknown Verified 11/05/22 10:52 Review of Systems Review of Systems: A 10 system review of systems was completed on the patient and is negative except for what is stated in the HPI. Nursing and ancillary documentation was reviewed. [facility] Past Medical History Medical History Parkinsons disease Surgical History Surgical History History of splenectomy Hx of tonsillectomy Social History Social History Smoking status: Never smoker Exam Narrative: GENERAL: Unresponsive endotracheal tube in place HEAD: Normocephalic, atraumatic. EYES: Fix. ENT: Nares clear, no rhinorrhea or epistaxis. Mucous membranes moist. NECK: Supple. CHEST: Clear to auscultation. No respiratory distress. HEART: Regular rate and rhythm. No murmur heard. Normal peripheral pulses. ABDOMEN: Soft, nontender, nondistended, normal active bowel sounds. EXTREMITIES: Normal range of motion. No edema. SKIN: Warm, dry, no rash. NEURO: Unresponsive intubated PSYCH: Unable to assess Course Vital Signs Vital signs: Vital Signs Pulse Rate 135 H 06/16/24 21:15 Pulse Oximetry 98 06/16/24 21:15 Oxygen Delivery Mechanical Ventilation 06/16/24 21:15 Fraction of Inspired Oxygen 100 06/16/24 21:15 Temperature 37.6 C H 06/17/24 02:13 Pulse Rate 118 H 06/17/24 02:13 Respiratory Rate 20 06/17/24 02:13 Blood Pressure 111/71 06/17/24 02:13 Pulse Oximetry 95 06/17/24 02:13 Oxygen Delivery Mechanical Ventilation 06/16/24 23:15 Fraction of Inspired Oxygen 100 06/16/24 23:15 Procedures Central Line Placement Right Femoral: Central Line Date: 06/16/24 Central Line Time: 22:16 Performed Emergently - Given emergent patient condition, temporal constraints may have precluded informed consent.: Yes Time Out Performed: Yes Patient Placed on Monitor/Pulse Ox: Yes Max. Sterile Barrier Technique: Caps, large sterile sheet and hand hygiene Central Line Prep: 2% chlorhexidine scrub and sterile drapes applied Technique: seldinger Local Anesthetic: none Central Line Lumen Inserted: triple Post Procedure: sutured in place, good blood return, all ports aspirated, flushed, capped and sterile dressing applied Patient Tolerated Procedure: well and no complications Complications: none Chest Tube Chest Tube 1: Chest Tube Date: 06/17/24 Chest Tube Time: 03:30 Chest Tube Location: right, mid axillary line and fourth interspace Tube Type: cook cath Chest Tube Prep: Yes betadine prep and sterile drapes applied Anesthetic: none Incision Made With: #11 blade Procedure: seldinger technique Post Procedure: sterile dressing applied, connected to Pluero Vac and connected to Heimlich Tube Drainage: daily of air Amount of initial drainage (mL): 0 Post Procedure: post CXR reviewed and pneumo resolved Patient Tolerated Procedure: Yes Medical Decision Making MDM Narrative Medical decision making narrative: The patient has been right mainstem intubated by EMS pre-hospital. Endotracheal tube was repositioned and chest x-ray was read he repeated showing improved aeration in the left lung. A right femoral triple-lumen central line was placed and Levophed was started to improve the patient's blood pressure. Thirty per kilos of normal saline boluses were started the patient was started on a fentanyl and Versed drip for sedation. Vital Signs Vital Signs: Vital Signs Pulse Rate 135 H 06/16/24 21:15 Pulse Oximetry 98 06/16/24 21:15 Oxygen Delivery Mechanical Ventilation 06/16/24 21:15 Fraction of Inspired Oxygen 100 06/16/24 21:15 Temperature 37.6 C H 06/17/24 02:13 Pulse Rate 118 H 06/17/24 02:13 Respiratory Rate 20 06/17/24 02:13 Blood Pressure 111/71 06/17/24 02:13 Pulse Oximetry 95 06/17/24 02:13 Oxygen Delivery Mechanical Ventilation 06/16/24 23:15 Fraction of Inspired Oxygen 100 06/16/24 23:15 Lab Data 06/16/24 21:49 06/16/24 21:49 Labs: Lab Results 06/16/24 06/16/24 06/16/24 Range/Units 21:49 22:00 22:18 WBC 12.8 H (4.5-10.0) K/mm3 RBC 4.43 (4.2-5.4) M/mm3 Hgb 8.8 L D (12.0-15.0) g/dL Hct 29.5 L (37.0-47.0) % MCV 66.6 L (80-100) fl MCH 19.9 L (26-34) pg MCHC 29.8 L (32-36) g/dl RDW 23.1 H (11.5-14.5) % Plt Count 257 (150-375) k/mm3 MPV 10.3 (7.4-10.4) fl Immature Gran % (Auto) Not Reportable Neut % (Auto) Not Reportable Lymph % (Auto) Not Reportable Mckenzie % (Auto) Not Reportable Eos % (Auto) Not Reportable Baso % (Auto) Not Reportable Lymph # (Auto) Not Reportable Mckenzie # (Auto) Not Reportable Eos # (Auto) Not Reportable Baso # (Auto) Not Reportable Abs Immat Gran (auto) Not Reportable Absolute Neuts (auto) Not Reportable Absolute Nucleated RBC Not Reportable Total Counted 100 Neutrophils % (Manual) 81 H (46-73) % Band Neutrophils % 13 H (0-6) % Lymphocytes % (Manual) 2.0 L (18-44) % Monocytes % (Manual) 4 (3-9) % Nucleated RBC % Not Reportable Abs Neuts (Manual) 12.03 H (1.7-7.2) K/mm3 Abs Lymphs (Manual) 0.25 L (1.1-4.5) K/mm3 Abs Monocytes (Manual) 0.51 (0.1-0.90) K/mm3 Platelet Estimate Adequate (Adequate) % Immature Plt Fraction 7.1 (0.9-11.2) % Anisocytosis 2+ Ovalocytes 1+ Crenated Cell 1+ Schistocytes Rare PT 16.5 H (11.1-14.7) Seconds INR 1.3 APTT 26.9 (22.3-36.8) Seconds Minute Volume Not Reportable Vent Mode Cmv Tidal Volume 360 ml PEEP 5 cmH2O Peak Inspir Pressure Not Reportable Pressure Support Not Reportable Sodium 143 (137-145) mmol/L Potassium 3.4 (3.4-5.0) mmol/L Chloride 108 H (98-107) mmol/L Carbon Dioxide 23 (22-30) mmol/L Anion Gap 12 (4-12) mmol/L BUN 37 H D (7-17) mg/dL Creatinine 1.10 H (0.7-1.0) mg/dL Estim Creat Clear Calc 23 ml/min Estimated GFR 49 L (59 - ) Glucose 197 H (65-110) mg/dL POC Capillary Glucose 152 H (65-105) mg/dl Lactic Acid (0.7-2.0) mmol/L Calcium 9.5 (8.4-10.2) mg/dL Magnesium 2.2 (1.6-2.3) mg/dL Total Bilirubin 1.2 (0.2-1.3) mg/dL AST 30 (14-36) U/L ALT 18 (6-35) U/L Alkaline Phosphatase 76 (38-126) U/L Troponin I 0.019 (0.000-0.034) ng/mL NT-Pro-B Natriuret Pep 882 H (19.9-100) pg/mL Total Protein 7.0 (6.3-8.2) g/dL Albumin 3.7 (3.5-5.1) g/dL Procalcitonin 3.2 ng/mL Urine Color (Yellow) Urine Appearance (Clear) Urine pH (5.0-9.0) Ur Specific [place] (1.001-1.035) Urine Protein (Negative) mg/dL Urine Glucose (UA) (Negative) mg/dL Urine Ketones (Negative) mg/dL Ur Blood (Man) (Negative) Urine Nitrate (Negative) Urine Bilirubin (Negative) Urine Urobilinogen (<2.0) mg/dL Add Ur Microanalysis Leukocyte Esterase Rfl (Negative) SETH/UL Urine RBC (0-2) /hpf Urine WBC (0-3) /hpf Ur Squamous Epith Cells (Few) /hpf Urine Bacteria /hpf Urine Casts Nasal MRSA (PCR) Influenza A (RT-PCR) (Negative) Influenza B (RT-PCR) (Negative) RSV (RT-PCR) (Negative) SARS-CoV-2 RNA (RT-PCR) (Negative) 06/16/24 06/17/24 06/17/24 Range/Units 22:20 00:18 01:10 WBC (4.5-10.0) K/mm3 RBC (4.2-5.4) M/mm3 Hgb (12.0-15.0) g/dL Hct (37.0-47.0) % MCV (80-100) fl MCH (26-34) pg MCHC (32-36) g/dl RDW (11.5-14.5) % Plt Count (150-375) k/mm3 MPV (7.4-10.4) fl Immature Gran % (Auto) Neut % (Auto) Lymph % (Auto) Mckenzie % (Auto) Eos % (Auto) Baso % (Auto) Lymph # (Auto) Mckenzie # (Auto) Eos # (Auto) Baso # (Auto) Abs Immat Gran (auto) Absolute Neuts (auto) Absolute Nucleated RBC Total Counted Neutrophils % (Manual) (46-73) % Band Neutrophils % (0-6) % Lymphocytes % (Manual) (18-44) % Monocytes % (Manual) (3-9) % Nucleated RBC % Abs Neuts (Manual) (1.7-7.2) K/mm3 Abs Lymphs (Manual) (1.1-4.5) K/mm3 Abs Monocytes (Manual) (0.1-0.90) K/mm3 Platelet Estimate (Adequate) % Immature Plt Fraction (0.9-11.2) % Anisocytosis Ovalocytes Crenated Cell Schistocytes PT (11.1-14.7) Seconds INR APTT (22.3-36.8) Seconds Minute Volume Vent Mode Tidal Volume ml PEEP cmH2O Peak Inspir Pressure Pressure Support Sodium (137-145) mmol/L Potassium (3.4-5.0) mmol/L Chloride (98-107) mmol/L Carbon Dioxide (22-30) mmol/L Anion Gap (4-12) mmol/L BUN (7-17) mg/dL Creatinine (0.7-1.0) mg/dL Estim Creat Clear Calc ml/min Estimated GFR (59 - ) Glucose (65-110) mg/dL POC Capillary Glucose (65-105) mg/dl Lactic Acid 2.6 H (0.7-2.0) mmol/L Calcium (8.4-10.2) mg/dL Magnesium (1.6-2.3) mg/dL Total Bilirubin (0.2-1.3) mg/dL AST (14-36) U/L ALT (6-35) U/L Alkaline Phosphatase (38-126) U/L Troponin I 0.045 H* D (0.000-0.034) ng/mL NT-Pro-B Natriuret Pep (19.9-100) pg/mL Total Protein (6.3-8.2) g/dL Albumin (3.5-5.1) g/dL Procalcitonin ng/mL Urine Color Yellow (Yellow) Urine Appearance Clear (Clear) Urine pH 7.0 (5.0-9.0) Ur Specific [place] 1.018 (1.001-1.035) Urine Protein 2+ H (Negative) mg/dL Urine Glucose (UA) Negative (Negative) mg/dL Urine Ketones Negative (Negative) mg/dL Ur Blood (Man) Trace (Negative) Urine Nitrate Negative (Negative) Urine Bilirubin Negative (Negative) Urine Urobilinogen 1.0 (<2.0) mg/dL Add Ur Microanalysis Reviewed Leukocyte Esterase Rfl Negative (Negative) SETH/UL Urine RBC 6-10 H (0-2) /hpf Urine WBC 0-5 (0-3) /hpf Ur Squamous Epith Cells Occasional (Few) /hpf Urine Bacteria None seen /hpf Urine Casts >20 Nasal MRSA (PCR) Influenza A (RT-PCR) Negative (Negative) Influenza B (RT-PCR) Negative (Negative) RSV (RT-PCR) Negative (Negative) SARS-CoV-2 RNA (RT-PCR) Negative (Negative) 12/07/24 Range/Units 02:57 WBC (4.5-10.0) K/mm3 RBC (4.2-5.4) M/mm3 Hgb (12.0-15.0) g/dL Hct (37.0-47.0) % MCV (80-100) fl MCH (26-34) pg MCHC (32-36) g/dl RDW (11.5-14.5) % Plt Count (150-375) k/mm3 MPV (7.4-10.4) fl Immature Gran % (Auto) Neut % (Auto) Lymph % (Auto) Mckenzie % (Auto) Eos % (Auto) Baso % (Auto) Lymph # (Auto) Mckenzie # (Auto) Eos # (Auto) Baso # (Auto) Abs Immat Gran (auto) Absolute Neuts (auto) Absolute Nucleated RBC Total Counted Neutrophils % (Manual) (46-73) % Band Neutrophils % (0-6) % Lymphocytes % (Manual) (18-44) % Monocytes % (Manual) (3-9) % Nucleated RBC % Abs Neuts (Manual) (1.7-7.2) K/mm3 Abs Lymphs (Manual) (1.1-4.5) K/mm3 Abs Monocytes (Manual) (0.1-0.90) K/mm3 Platelet Estimate (Adequate) % Immature Plt Fraction (0.9-11.2) % Anisocytosis Ovalocytes Crenated Cell Schistocytes PT (11.1-14.7) Seconds INR APTT (22.3-36.8) Seconds Minute Volume Vent Mode Tidal Volume ml PEEP cmH2O Peak Inspir Pressure Pressure Support Sodium (137-145) mmol/L Potassium (3.4-5.0) mmol/L Chloride (98-107) mmol/L Carbon Dioxide (22-30) mmol/L Anion Gap (4-12) mmol/L BUN (7-17) mg/dL Creatinine (0.7-1.0) mg/dL Estim Creat Clear Calc ml/min Estimated GFR (59 - ) Glucose (65-110) mg/dL POC Capillary Glucose (65-105) mg/dl Lactic Acid (0.7-2.0) mmol/L Calcium (8.4-10.2) mg/dL Magnesium (1.6-2.3) mg/dL Total Bilirubin (0.2-1.3) mg/dL AST (14-36) U/L ALT (6-35) U/L Alkaline Phosphatase (38-126) U/L Troponin I (0.000-0.034) ng/mL NT-Pro-B Natriuret Pep (19.9-100) pg/mL Total Protein (6.3-8.2) g/dL Albumin (3.5-5.1) g/dL Procalcitonin ng/mL Urine Color (Yellow) Urine Appearance (Clear) Urine pH (5.0-9.0) Ur Specific [place] (1.001-1.035) Urine Protein (Negative) mg/dL Urine Glucose (UA) (Negative) mg/dL Urine Ketones (Negative) mg/dL Ur Blood (Man) (Negative) Urine Nitrate (Negative) Urine Bilirubin (Negative) Urine Urobilinogen (<2.0) mg/dL Add Ur Microanalysis Leukocyte Esterase Rfl (Negative) SETH/UL Urine RBC (0-2) /hpf Urine WBC (0-3) /hpf Ur Squamous Epith Cells (Few) /hpf Urine Bacteria /hpf Urine Casts Nasal MRSA (PCR) Pending Influenza A (RT-PCR) (Negative) Influenza B (RT-PCR) (Negative) RSV (RT-PCR) (Negative) SARS-CoV-2 RNA (RT-PCR) (Negative) ABG Data ABG results: 06/16/24 22:00 Puncture Site Right radial ABG pH 7.278 L* ABG pCO2 49.1 H ABG pO2 74.3 L ABG PO2/FiO2 Ratio 0.74 ABG HCO3 22.5 ABG O2 Saturation 93.0 L ABG O2 Content 12.5 L ABG Base Excess -4.3 A-a Gradient 589.6 Oxyhemoglobin 91.0 Total Hemoglobin 9.7 L O2 Delivery Device Ventilator O2 Liters/Min Not Reportable Vent Rate 18 FiO2 100 Critical Care Time Critical Care Time Critical Care Time: Yes Total Critical Care Time: 75 Discharge Plan Discharge Clinical Impression: Cardiac arrest, Pneumonia, Pneumothorax, Acute hypoxic respiratory failure Patient Disposition: Still a Patient Condition: Stable Prescriptions: No Action polyethylene glycol 3350 [Miralax] 17 gram/dose powder 17 g PO DAILY Qty: 238 0RF cephalexin 500 mg capsule 500 mg PO Q8H 5 Days Qty: 15 0RF Follow-up/Referrals: Nikolai,Emeka Dale MD [Primary Care Provider] - Time of Disposition: 03:31
[2024-06-16 22:14] LABS: Arterial Blood Gas PEEP 5 cmH2O; Arterial Blood Gas Tidal Volume 360 ml; Arterial Blood Gas Vent Mode CMV; Arterial Blood Gas Ventilator rate 18 /MIN
[2024-06-16 22:16] LABS: NT Pro B Type Natriuretic Pept 882 pg/mL (19.9-100); Troponin I 0.019 ng/mL (0.000-0.034)
[2024-06-16 22:18] LABS: INR 1.3; Prothrombin Time 16.5 Seconds (11.1-14.7)
[2024-06-16 22:19] LABS: Magnesium 2.2 mg/dL (1.6-2.3); Partial Thromboplastin Time 26.9 Seconds (22.3-36.8)
[2024-06-16 22:20] LABS: Glucose Point of Care 152 mg/dl (65-105)
[2024-06-16] MEDS: SODIUM CHLORIDE 0.9% IV 500 ML 999 ML IV CONT (22:22)
[2024-06-16 22:25] LABS: Band Neutrophils Percent 13 % (0-6); Lymphocytes Absolute Manual 0.25 K/mm3 (1.1-4.5); Monocytes Absolute Manual 0.51 K/mm3 (0.1-0.90); Monocytes Percent Manual 4 % (3-9); Neutrophils Absolute Manual 12.03 K/mm3 (1.7-7.2); Neutrophils Percent Manual 81 % (46-73); Platelet Estimate Adequate (Adequate); Total Cells Counted 100
[2024-06-16 22:26] LABS: Anisocytosis 2+; Ovalocytes 1+
[2024-06-16 22:27] LABS: Crenated RBC 1+; Schistocytes Rare
[2024-06-16 22:35] LABS: Procalcitonin 3.2 ng/mL
[2024-06-16] MEDS: FENTANYL 2,500MCG/NS250ML(*CRX 2,500 MCG/250 ML BAG IV CONT (22:50)
[2024-06-16 22:51] LABS: Add Urine Microscopic? YES; Appearance Urine Clear (Clear); Bacteria Urine None Seen /hpf; Bilirubin Urine Negative (Negative); Blood Urine Trace (Negative); Color Urine Yellow (Yellow); Glucose Urine UA Negative (Negative); Ketones Urine Negative (Negative); Leukocyte Esterase Ur Negative LEU/UL (Negative); Need Manual Microscopic Reviewed; Nitrate Urine Negative (Negative); Non Pathogenic Casts >20; Protein Urine 2+ mg/dL (Negative); Specific Grav Ur 1.018 (1.001-1.035); Squamous Epithelial Cell Urine Occasional /hpf (Few); WBC Urine 0-5 /hpf (0-3)
[2024-06-16] MEDS: MIDAZOLAM 100MG/NS 100ML(*CRX) 100 MG/100 ML BAG IV CONT (22:55)
[2024-06-16] MEDS: NOREPINEPHRINE 8 MG/D5W 250 ML 8 MG/250 ML BAG 15 MG IV CONT (23:00)
--- NOTE | 2024-06-16 23:26 | PC.NURSE ---
Assumed care of pt from Seema WHITE at this time. Pt on monitor, family at bedside. Medication rates UTD on SEP. Pt VS updated on chart.
[2024-06-17] VITALS (42 sets, daily range): BP systolic 78–158; BP diastolic 54–97; PULSE 0–141; RESP 0–28; TEMP 35.1–37.7; O2SAT 92–100; BMI 19.3
[2024-06-17 00:58] LABS: Influenza A QL RT-PCR Negative (Negative); Influenza B QL RT-PCR Negative (Negative); RSV RNA, RT-PCR Negative (Negative); SARS-CoV-2 RNA PCR Negative (Negative)
[2024-06-17 01:28] LABS: Lactic Acid Reflex 2.6 mmol/L (0.7-2.0)
[2024-06-17 01:50] LABS: Troponin I 0.045 ng/mL (0.000-0.034)
[2024-06-17] MEDS: CEFEPIME 2 GM/NS 50 ML 2 GM/50 ML BAG IVPB (02:24)
--- NOTE | 2024-06-17 03:22 | P.HP_ITS ---
H&P: HPI History of Present Illness Date/Time: 06/17/24 03:22 Chief Complaint: Cardiac arrest Narrative: 73-year-old female with past medical history of anxiety, irritable bowel syndrome, GERD dementia and Parkinson's disease who presented to the ER from home after being found unresponsive. According to triage note patient was unresponsive for our and slumped over. When EMS arrived patient was having agonal respirations and no palpable pulse. She had 1 round of CPR with to pushes of epinephrine and placement of an IO in the right lower extremity. The patient was given ketamine in the field and intubated. On arrival to the ER patient was noted to be markedly hypotensive with initial blood pressure of 39/24. She was given fluid bolus of 1.5 L which she quit fluid to 30 mL/kilos. A right femoral central line was placed and patient was started on norepinephrine fentanyl and Versed. Patient had chest x-ray performed which demonstrated right mainstem intubation with hyperinflation of the right lung. ET tube was pulled back and repositioned with repeat chest x-ray. Suspected pneumothorax was noted patient was sent for CT of the chest abdomen pelvis was confirmed moderate-sized right-sided pneumothorax with evidence of pulmonary contusions and findings concerning for bilateral pneumonia. Patient was placed on ventilator with tidal volume of 380 peep of 800% FiO2 and rate of 18. CT of the brain was obtained which was negative for acute process. Labs demonstrated leukocytosis with 13% bands, combined respiratory and metabolic acidosis with pH of 7.27 and initial troponin 0.019 and repeat of 0.045. Initial EKG demonstrated sinus tachycardia with rate of 126 and QTC of 513 as well as some nonspecific T-wave abnormality and baseline artifact in all leads. Blood cultures were obtained. During process of evaluation the patient became febrile with T-max at 99.7?. The patient's oldest daughter and the patient's son her at bedside and provide all of the history for the patient. Patient has long history of Parkinson's since proximally 2008. She has had a significant decline in functional status, cognition and mood over recent months. She has had significant weight loss and poor appetite. They have noticed the patient is become more frail and has had a decline in quality of life. The patient had been coughing over the last several days. They had not noticed her having any fevers or chills. She had been having increased episodes of just sitting and staring into space. She has chronically poor appetite and they had not been able to get her to eat much at all in the last couple of days. They had not noticed her having any diarrhea. She does have issues with chronic urinary incontinence and has significant uterine prolapse at baseline. The patient only intermittently takes her medications both her Sinemet and Xanax and basically only when she wants than. Review of Systems Review of Systems: ROS unobtainable: Yes unobtainable due to endotracheal tube PMFSH Past Medical History Medical History (Updated 06/17/24 @ 09:56 by Jl Rodriguez MD) Parkinsons disease Surgical History Surgical History History of splenectomy Hx of tonsillectomy Family History Family History Other Unknown family medical history Social History Social History Social History: Patient lives at home with her of 36 years (they have been together for 46 years). She is a lifelong nonsmoker and does not have any history of alcohol or drug use. Her and her raised 4 children. Two of the patient's children 1 due to motor vehicle collision another 1 due to brain tumor. She has 2 daughter still living. 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 Code status: DNR Surrogate decision maker: Bill () Smoking status: Never smoker Alcohol intake: never Substance use: never Living arrangements: with family Spiritual care concerns: Yes Meds Home Medications and Allergies Home Medications Medication Instructions Recorded Confirmed Type alendronate 70 mg tablet 70 mg PO 06/17/24 History alprazolam 0.5 mg tablet 0.5 mg PO TID 06/17/24 06/17/24 History carbidopa 25 mg-levodopa 100 mg 3.5 tablet PO QID 06/17/24 06/17/24 History tablet Allergies Allergy/AdvReac Type Severity Reaction Status Date / Time Penicillins Allergy Unknown Unknown Verified 11/05/22 10:52 codeine AdvReac Unknown Unknown Verified 11/05/22 10:52 Vital Signs Vital Signs - 24 hr 06/16/24 21:17 06/16/24 21:40 06/16/24 21:40 Temperature 98 F Pulse Rate 68 132 H Respiratory Rate 16 Blood Pressure 39/24 L Pulse Oximetry 20 L 98 Oxygen Delivery Bag Valve Mask BiPAP Fraction of Inspired Oxygen 06/16/24 21:40 06/16/24 21:59 06/16/24 21:15 Temperature Pulse Rate 126 H 136 H 135 H Respiratory Rate 26 H Blood Pressure 124/76 73/50 L Pulse Oximetry 99 98 Oxygen Delivery Mechanical Ventilation Fraction of Inspired Oxygen 100 06/16/24 22:05 06/16/24 22:26 06/16/24 22:29 Temperature 96.3 F L Pulse Rate 133 H 132 H Respiratory Rate 29 H Blood Pressure 137/70 133/75 Pulse Oximetry 94 92 Oxygen Delivery Mechanical Ventilation Fraction of Inspired Oxygen 100 06/16/24 22:50 06/16/24 22:55 06/16/24 22:30 Temperature Pulse Rate 127 H 128 H 132 H Respiratory Rate 31 H 29 H Blood Pressure 133/75 Pulse Oximetry Oxygen Delivery Fraction of Inspired Oxygen 06/16/24 23:00 06/16/24 23:27 06/16/24 23:15 Temperature Pulse Rate 127 H 121 H 126 H Respiratory Rate 22 H Blood Pressure 126/67 107/76 Pulse Oximetry 95 91 Oxygen Delivery Mechanical Ventilation Fraction of Inspired Oxygen 100 06/17/24 01:12 06/17/24 02:13 06/17/24 01:30 Temperature 99.7 F H Pulse Rate 120 H 118 H 117 H Respiratory Rate 18 20 25 H Blood Pressure 113/73 111/71 Pulse Oximetry 92 95 Oxygen Delivery Fraction of Inspired Oxygen 06/17/24 01:30 Temperature Pulse Rate 122 H Respiratory Rate 28 H Blood Pressure Pulse Oximetry Oxygen Delivery Fraction of Inspired Oxygen Exam Narrative: Weight is 36.5 kg BMI is 15.7 Const: Other: Frail, elderly, acutely ill-appearing, disheveled HENMT: Other: Dry mucous membranes, multiple teeth are broken off at the gumline, ET tube measuring 25 cm at the lip, OG in place Eyes: Other: Pupils are constricted bilaterally, positive conjunctival pallor, no scleral icterus Neck: Other: No JVD, no lymphadenopathy Chest: Other: Chest tube in the right chest with air leak present Resp: Other: Equal breath sounds but course throughout, patient is not over breathing the vent Cardio: Other: Sinus tachycardia, weak pedal and radial pulses, no obvious murmur, no JVD GI: Other: Soft, nondistended, positive bowel sounds, midline surgical scar from the xiphoid down to the pubis : Other: Rubin catheter in place with clear pale yellow urine Skin: Other: Poor skin turgor, slightly jaundice appearance, superficial dirt noted to the defibrillator pads when they removed from the skin Neuro: Other: Sedated, pupils are pinpoint, not withdrawing to pain or responding to stimuli, increased tone of the left upper extremity Extrem: Other: Increased tone and contracture of the left left hand, decreased range of motion of the left shoulder seems consistent with frozen shoulder, no clubbing, no cyanosis Psych: Other: Unable to assess due to patient condition H&P: Results Labs Labs: Laboratory Tests 06/16/24 21:49 06/16/24 21:49 06/16/24 06/16/24 06/16/24 21:49 22:00 22:18 WBC 12.8 H RBC 4.43 Hgb 8.8 L D Hct 29.5 L MCV 66.6 L MCH 19.9 L MCHC 29.8 L RDW 23.1 H Plt Count 257 MPV 10.3 Immature Gran % (Auto) Not Reportable Neut % (Auto) Not Reportable Lymph % (Auto) Not Reportable [place] % (Auto) Not Reportable Eos % (Auto) Not Reportable Baso % (Auto) Not Reportable Lymph # (Auto) Not Reportable [place] # (Auto) Not Reportable Eos # (Auto) Not Reportable Baso # (Auto) Not Reportable Abs Immat Gran (auto) Not Reportable Absolute Neuts (auto) Not Reportable Absolute Nucleated RBC Not Reportable Total Counted 100 Neutrophils % (Manual) 81 H Band Neutrophils % 13 H Lymphocytes % (Manual) 2.0 L Monocytes % (Manual) 4 Nucleated RBC % Not Reportable Abs Neuts (Manual) 12.03 H Abs Lymphs (Manual) 0.25 L Abs Monocytes (Manual) 0.51 Platelet Estimate Adequate % Immature Plt Fraction 7.1 Anisocytosis 2+ Ovalocytes 1+ Crenated Cell 1+ Schistocytes Rare PT 16.5 H INR 1.3 APTT 26.9 Puncture Site Right radial ABG pH 7.278 L* ABG pCO2 49.1 H ABG pO2 74.3 L ABG PO2/FiO2 Ratio 0.74 ABG HCO3 22.5 ABG O2 Saturation 93.0 L ABG O2 Content 12.5 L ABG Base Excess -4.3 A-a Gradient 589.6 Oxyhemoglobin 91.0 Total Hemoglobin 9.7 L O2 Delivery Device Ventilator O2 Liters/Min Not Reportable Minute Volume Not Reportable Vent Rate 18 Vent Mode Cmv FiO2 100 Tidal Volume 360 PEEP 5 Peak Inspir Pressure Not Reportable Pressure Support Not Reportable Sodium 143 Potassium 3.4 Chloride 108 H Carbon Dioxide 23 Anion Gap 12 BUN 37 H D Creatinine 1.10 H Estim Creat Clear Calc 23 Estimated GFR 49 L Glucose 197 H POC Capillary Glucose 152 H Lactic Acid Calcium 9.5 Magnesium 2.2 Total Bilirubin 1.2 AST 30 ALT 18 Alkaline Phosphatase 76 Troponin I 0.019 NT-Pro-B Natriuret Pep 882 H Total Protein 7.0 Albumin 3.7 Procalcitonin 3.2 Urine Color Urine Appearance Urine pH Ur Specific [place] Urine Protein Urine Glucose (UA) Urine Ketones Ur Blood (Man) Urine Nitrate Urine Bilirubin Urine Urobilinogen Add Ur Microanalysis Leukocyte Esterase Rfl Urine RBC Urine WBC Ur Squamous Epith Cells Urine Bacteria Urine Casts Nasal MRSA (PCR) Influenza A (RT-PCR) Influenza B (RT-PCR) RSV (RT-PCR) SARS-CoV-2 RNA (RT-PCR) 06/16/24 06/17/24 06/17/24 22:20 00:18 01:10 WBC RBC Hgb Hct MCV MCH MCHC RDW Plt Count MPV Immature Gran % (Auto) Neut % (Auto) Lymph % (Auto) [place] % (Auto) Eos % (Auto) Baso % (Auto) Lymph # (Auto) [place] # (Auto) Eos # (Auto) Baso # (Auto) Abs Immat Gran (auto) Absolute Neuts (auto) Absolute Nucleated RBC Total Counted Neutrophils % (Manual) Band Neutrophils % Lymphocytes % (Manual) Monocytes % (Manual) Nucleated RBC % Abs Neuts (Manual) Abs Lymphs (Manual) Abs Monocytes (Manual) Platelet Estimate % Immature Plt Fraction Anisocytosis Ovalocytes Crenated Cell Schistocytes PT INR APTT Puncture Site ABG pH ABG pCO2 ABG pO2 ABG PO2/FiO2 Ratio ABG HCO3 ABG O2 Saturation ABG O2 Content ABG Base Excess A-a Gradient Oxyhemoglobin Total Hemoglobin O2 Delivery Device O2 Liters/Min Minute Volume Vent Rate Vent Mode FiO2 Tidal Volume PEEP Peak Inspir Pressure Pressure Support Sodium Potassium Chloride Carbon Dioxide Anion Gap BUN Creatinine Estim Creat Clear Calc Estimated GFR Glucose POC Capillary Glucose Lactic Acid 2.6 H Calcium Magnesium Total Bilirubin AST ALT Alkaline Phosphatase Troponin I 0.045 H* D NT-Pro-B Natriuret Pep Total Protein Albumin Procalcitonin Urine Color Yellow Urine Appearance Clear Urine pH 7.0 Ur Specific [place] 1.018 Urine Protein 2+ H Urine Glucose (UA) Negative Urine Ketones Negative Ur Blood (Man) Trace Urine Nitrate Negative Urine Bilirubin Negative Urine Urobilinogen 1.0 Add Ur Microanalysis Reviewed Leukocyte Esterase Rfl Negative Urine RBC 6-10 H Urine WBC 0-5 Ur Squamous Epith Cells Occasional Urine Bacteria None seen Urine Casts >20 Nasal MRSA (PCR) Influenza A (RT-PCR) Negative Influenza B (RT-PCR) Negative RSV (RT-PCR) Negative SARS-CoV-2 RNA (RT-PCR) Negative 06/17/24 02:57 WBC RBC Hgb Hct MCV MCH MCHC RDW Plt Count MPV Immature Gran % (Auto) Neut % (Auto) Lymph % (Auto) [place] % (Auto) Eos % (Auto) Baso % (Auto) Lymph # (Auto) [place] # (Auto) Eos # (Auto) Baso # (Auto) Abs Immat Gran (auto) Absolute Neuts (auto) Absolute Nucleated RBC Total Counted Neutrophils % (Manual) Band Neutrophils % Lymphocytes % (Manual) Monocytes % (Manual) Nucleated RBC % Abs Neuts (Manual) Abs Lymphs (Manual) Abs Monocytes (Manual) Platelet Estimate % Immature Plt Fraction Anisocytosis Ovalocytes Crenated Cell Schistocytes PT INR APTT Puncture Site ABG pH ABG pCO2 ABG pO2 ABG PO2/FiO2 Ratio ABG HCO3 ABG O2 Saturation ABG O2 Content ABG Base Excess A-a Gradient Oxyhemoglobin Total Hemoglobin O2 Delivery Device O2 Liters/Min Minute Volume Vent Rate Vent Mode FiO2 Tidal Volume PEEP Peak Inspir Pressure Pressure Support Sodium Potassium Chloride Carbon Dioxide Anion Gap BUN Creatinine Estim Creat Clear Calc Estimated GFR Glucose POC Capillary Glucose Lactic Acid Calcium Magnesium Total Bilirubin AST ALT Alkaline Phosphatase Troponin I NT-Pro-B Natriuret Pep Total Protein Albumin Procalcitonin Urine Color Urine Appearance Urine pH Ur Specific [place] Urine Protein Urine Glucose (UA) Urine Ketones Ur Blood (Man) Urine Nitrate Urine Bilirubin Urine Urobilinogen Add Ur Microanalysis Leukocyte Esterase Rfl Urine RBC Urine WBC Ur Squamous Epith Cells Urine Bacteria Urine Casts Nasal MRSA (PCR) Pending Influenza A (RT-PCR) Influenza B (RT-PCR) RSV (RT-PCR) SARS-CoV-2 RNA (RT-PCR) Impressions Chest X-Ray 06/16/24 22:24 IMPRESSION: Possible pneumothorax in the right costophrenic angle and apical area. Opacification of the left lung which may indicate atelectasis. Repositioning of the endotracheal tube is noted. Chest X-Ray 06/16/24 22:30 IMPRESSION: Lucency in the costophrenic angle. Similar appearances also seen in the right apical area. A repeat exam in 2 hours is advised. Improved aeration of the left lung. Bilateral lower lobe pneumonia. Dr. Jason was notified with the result of the patient. 10:35 PM on June 16, 2024. Head CT 06/17/24 00:36 IMPRESSION: No acute intracranial findings. Assessment and Plan Assessment and plan (1) Cardiac arrest with successful resuscitation: Code(s): I46.9 - Cardiac arrest, cause unspecified Status: Acute (2) Acute respiratory failure: Qualifiers: Respiratory failure complication: hypoxia and hypercapnia Qualified Co de(s): J96.01 - Acute respiratory failure with hypoxia; J96.02 - Acute respiratory failure with hypercapnia Code(s): J96.00 - Acute respiratory failure, unspecified whether with hypoxia or hypercapnia Status: Acute (3) Sepsis: Qualifiers: Acute respiratory failure type: unspecified Sepsis acute organ dysfunction status: with acute organ dysfunction Sepsis type: sepsis due to unspecified organism Severe sepsis acute organ dysfunction type: acute respiratory failure Severe sepsis shock status: with septic shock Qualified Code(s): A41.9 - Sepsis, unspecified organism; R65.21 - Severe sepsis with septic shock; J96.00 - Acute respiratory failure, unspecified whether with hypoxia or hypercapnia Code(s): A41.9 - Sepsis, unspecified organism Status: Acute (4) Pneumonia: Qualifiers: Laterality: bilateral Lung location: unspecified part of lung Pneumonia type: due to unspecified organism Qualified Code(s): J18.9 - Pneumonia, unspecified organism Code(s): J18.9 - Pneumonia, unspecified organism Status: Acute (5) Hypotension: Qualifiers: Hypotension type: hypotension due to hypovolemia Qualified Code(s): E86.1 - Hypovolemia Code(s): I95.9 - Hypotension, unspecified Status: Acute (6) Acute anemia: Code(s): D64.9 - Anemia, unspecified Status: Acute (7) Metabolic acidosis with normal anion gap and bicarbonate losses: Code(s): E87.20 - Acidosis, unspecified Status: Acute (8) Acute kidney injury: Code(s): N17.9 - Acute kidney failure, unspecified Status: Acute (9) Elevated troponin: Code(s): R79.89 - Other specified abnormal findings of blood chemistry Status: Acute (10) Severe protein-calorie malnutrition: Code(s): E43 - Unspecified severe protein-calorie malnutrition Status: Acute Plan Patient has had cardiac arrest with successful resuscitation. I am suspicious of the patient's cardiac risk may have been secondary to pulmonary rest given recent cough and shortness of breath that the family had reported in addition to imaging findings that look suspicious for pneumonia and CT scan official radiologic interpretation of CT scan is not available for my review. CTA of the chest did demonstrate moderate right-sided pneumothorax at the time of my review there may be some component of pulmonary contusion that is helping precipitate the patient's respiratory failure. The patient was placed on ventilator initially with tidal volume of 360 rate of 18 peep of 8 and 100% FiO2. I requested repeat ABG and ventilator settings were changed to tidal volume 350 peep of 5 rate of 24 and 80% FiO2. Repeat ABG a couple hours later had improved demonstrate resolution of metabolic acidosis with only minimal hypercapnia. I a right-sided chest tube was placed in the ER which demonstrated with significant improvement in size of the pneumothorax. Pneumothorax likely due to res uscitation efforts and exacerbated by right mainstem intubation. ET tube was adjusted in the ER with repeat imaging demonstrated improved aeration bilaterally. NG has been placed to low intermittent suction. Will aim for lower tidal volume strategy. Will wean FiO2 as tolerated. Daily chest x-rays and ABGs have been ordered. Chain Testing Machine Operator has been consulted. Given cardiac arrest patient been placed on targeted temperature therapy. Electrolytes are currently stable. Will monitor serial labs. Patient does have significant leukocytosis in the setting of possible pneumonia is been placed on broad- spectrum antibiotic therapy. Blood cultures have been obtained and are pending. Patient is hypotensive shock is likely due to sepsis however may be be some component of hypovolemic or cardiogenic in nature. Will obtain echocardiogram to further evaluate patient's cardiac structure and function. Will monitor patient's troponins. Patient does have acute anemia compared to prior labs but is been sometime since she has had prior CBC. Will obtain ferritin, TIBC, protein electrophoresis, folic acid, B12 and TSH. I suspect patient likely has iron deficiency anemia due to decreased iron intake given her generally poor appetite and failure to thrive. She has marked protein calorie malnutrition so nutritional deficiencies seemed to fit better with causes of anemia but will check a broader spectrum of labs given the patient's recent memory loss to rule out component metabolic dysfunction precipitating patient's decline. Patient would benefit from early trickle feeds however will defer decision to the associate consulting engineer given the patient is on hypothermia protocol. The patient did have acute kidney injury on presentation but has had relatively good urine output in the ER. Will continue monitor strict I&O's and daily weights. Will avoid nephrotoxic medications and will aim for adequate perfusion pressures with maps of 65-70. Patient does have central line in place with pressors infusing. I had extensive discussion with the patient's daughter Liana in the patient's Bill at bedside. The stated that if the patient's heart were to stop again they would not want her heart restarted. They realize that the patient's quality of life has declined significantly in recent months. They are not ready at this time to withdrawal care in would like to proceed with cooling protocol and see how the patient does over the next 24-48 hours before making a final decision as to whether not to withdraw care. They would like to continue with ventilatory support, pressors and antibiotics and any other such treatment they deem appropriate. 70 minute spent in critical care activities Quality VTE Prophylaxis VTE prophylaxis: pharmacologic ordered (Heparin 5000 units subQ q.12h) Hospitalist MIPS Advance Care Plan I have confirmed that the patient's Advanced Care Plan is present, code status is documented, or surrogate decision maker is listed in patient medical record.: Yes Medication Reconciliation I have utilized all available resources to obtain, update and review the patients current medications (includes all prescriptions, OTC, herbals, cannabis, and nutritional supplements).: Yes
[2024-06-17] MEDS: VANCOMYCIN 1,000 MG/NS 250 ML 1,000 MG/250 ML BAG 250 MG IVPB (03:41)
[2024-06-17 03:42] LABS: Alveolar/Arterial O2 Gradient 536.5 mmHg; Base Excess ABG -0.4 mEq/l (+/-2.0); Fractional Inspired Oxygen 100 %; HCO3 ABG 25.6 mEq/l (22.0-26.0); Oxygen Content ABG 13.4 %vol (16.0-22.0); Oxygen Saturation ABG 98.4 % (95.0-100.0); Oxyhemoglobin 97.5 % THb (90.0-100.0); PCO2 ABG 48.5 mmHg (35.0-45.0); PO2 FiO2 Ratio Arterial Blood 1.28 %; Total Hemoglobin 9.6 g/dL (12.0-18.0); pH ABG 7.341 (7.350-7.450)
[2024-06-17 03:46] LABS: Device VENTILATOR; Modified Allen's Test Pass; Site Drawn LEFT RADIAL
[2024-06-17 03:47] LABS: Arterial Blood Gas PEEP 8 cmH2O; Arterial Blood Gas Tidal Volume 360 ml; Arterial Blood Gas Vent Mode CMV; Arterial Blood Gas Ventilator rate 18 /MIN
[2024-06-17 04:13] LABS: MRSA (PCR) NOT DETECTED (NOT DETECTE)
[2024-06-17 04:16] LABS: Reflex Lactic Acid Yes or No Add Lactic
--- NOTE | 2024-06-17 04:27 | PC.NURSE ---
Report received from Krunal WHITE in ED.
--- NOTE | 2024-06-17 05:00 | ADMGEN ---
This patient, Leonor Vuong, was admitted to Intensive Care Unit-5. Patient/family oriented to hospital policies and general routines including ID bracelet, bed and alarms, visiting hours, pain management, procedures, bathroom and other care routines, personal items, smoking policy, room service/diet, and visiting hours. Information on how to activate the Rapid Response Team has been discussed. Patient/Family are encouraged to report perceived risks to care and to ask questions if they do not understand what they are told or what they should do.
[2024-06-17 06:06] LABS: Alveolar/Arterial O2 Gradient 417.1 mmHg; Base Excess ABG 0.5 mEq/l (+/-2.0); Fractional Inspired Oxygen 100 %; Oxygen Saturation ABG 99.5 % (95.0-100.0); PO2 ABG 249.9 mmHg (80.0-100.0); Total Hemoglobin 9.6 g/dL (12.0-18.0)
[2024-06-17 06:07] LABS: Device VENTILATOR; Modified Allen's Test Pass; Site Drawn RIGHT RADIAL
[2024-06-17 06:08] LABS: Arterial Blood Gas PEEP 5 cmH2O; Arterial Blood Gas Tidal Volume 350 ml; Arterial Blood Gas Vent Mode CMV; Arterial Blood Gas Ventilator rate 24 /MIN
[2024-06-17 06:46] LABS: Troponin I 0.209 ng/mL (0.000-0.034)
[2024-06-17 07:23] LABS: Glucose Point of Care 126 mg/dl (65-105)
[2024-06-17] MEDS: CENTRAL LINE FLUSH 10 ML IV PUSH (07:31)
[2024-06-17] MEDS: MINERAL OIL/WHITE PETROLATUM OINTMENT 1 APPLIC EACH EYE (08:43)
[2024-06-17] MEDS: PANTOPRAZOLE SODIUM IV 40 MG VIAL IV PUSH (08:43)
[2024-06-17] MEDS: HEPARIN SODIUM 5,000 UNITS/ML VIAL 5000 UNITS SUB-Q (08:43)
[2024-06-17 08:45] LABS: Glucose Point of Care 112 mg/dl (65-105)
[2024-06-17] MEDS: LACTATED RINGERS 1,000 ML 100 ML IV CONT (08:52)
[2024-06-17 09:03] LABS: Creatine Kinase 123 U/L (30-135)
[2024-06-17 09:16] LABS: Hematocrit 30.1 % (37.0-47.0); Hemoglobin 8.9 g/dL (12.0-15.0); Immature Platelet Fraction Pct 8.6 % (0.9-11.2); Mean Corpuscular HGB Conc 29.6 g/dl (32-36); Mean Corpuscular Hemoglobin 19.8 pg (26-34); Platelet Count Result 238 k/mm3 (150-375); Red Blood Count 4.49 M/mm3 (4.2-5.4); Red Cell Distribution Width 22.8 % (11.5-14.5); White Blood Count 8.2 K/mm3 (4.5-10.0)
[2024-06-17 09:26] LABS: Alanine Aminotransferase 18 U/L (6-35); Albumin Level 3.3 g/dL (3.5-5.1); Alkaline Phosphatase 75 U/L (38-126); Anion Gap 3 mmol/L (4-12); Aspartate Amino Transferase 28 U/L (14-36); Bilirubin,Total 1.2 mg/dL (0.2-1.3); Blood Urea Nitrogen 36 mg/dL (7-17); Calcium 9.1 mg/dL (8.4-10.2); Carbon Dioxide 30 mmol/L (22-30); Chloride 110 mmol/L (98-107); Estimated CRCL calculation 28 ml/min; Estimated Glomerular Filt Rate 49; Glucose 128 mg/dL (65-110); Magnesium 2.1 mg/dL (1.6-2.3); Phosphorus 4.2 mg/dL (2.5-4.5); Sodium 143 mmol/L (137-145)
[2024-06-17 09:33] LABS: Glucose Point of Care 120 mg/dl (65-105)
[2024-06-17 09:42] LABS: Iron 12 ug/dL (37-170)
[2024-06-17 09:52] LABS: Percent Iron Saturation 3 % (20-50)
--- NOTE | 2024-06-17 09:53 | WPDCNINT ---
Assessment and Plan Assessment and plan (1) Cardiac arrest with successful resuscitation: Code(s): I46.9 - Cardiac arrest, cause unspecified Status: Acute (2) Acute respiratory failure: Qualifiers: Respiratory failure complication: hypoxia and hypercapnia Qualified Code(s): J96.01 - Acute respiratory failure with hypoxia; J96.02 - Acute respiratory failure with hypercapnia Code(s): J96.00 - Acute respiratory failure, unspecified whether with hypoxia or hypercapnia Status: Acute (3) Pneumothorax on right: Code(s): J93.9 - Pneumothorax, unspecified Status: Acute (4) Sepsis: Qualifiers: Acute respiratory failure type: unspecified Sepsis acute organ dysfunction status: with acute organ dysfunction Sepsis type: sepsis due to unspecified organism Severe sepsis acute organ dysfunction type: acute respiratory failure Severe sepsis shock status: with septic shock Qualified Code(s): A41.9 - Sepsis, unspecified organism; R65.21 - Severe sepsis with septic shock; J96.00 - Acute respiratory failure, unspecified whether with hypoxia or hypercapnia Code(s): A41.9 - Sepsis, unspecified organism Status: Acute (5) Shock: Code(s): R57.9 - Shock, unspecified Status: Acute (6) Pneumonia: Qualifiers: Laterality: bilateral Lung location: unspecified part of lung Pneumonia type: due to unspecified organism Qualified Code(s): J18.9 - Pneumonia, unspecified organism Code(s): J18.9 - Pneumonia, unspecified organism Status: Acute (7) Elevated troponin: Code(s): R79.89 - Other specified abnormal findings of blood chemistry Status: Acute (8) Acute kidney injury: Code(s): N17.9 - Acute kidney failure, unspecified Status: Acute (9) Acute anemia: Code(s): D64.9 - Anemia, unspecified Status: Acute (10) Severe protein-calorie malnutrition: Code(s): E43 - Unspecified severe protein-calorie malnutrition Status: Acute (11) Parkinsons disease: Code(s): G20 - Parkinson's disease Status: Acute Plan I examined the patient and reviewed chart. Reviewed all the labs and imaging. I had made vent changes in the morning order sliding scale DVT prophylaxis IV fluids, Protonix and antibiotics Later I met with patient's daughter son and other family members at bedside. They told me the patient had been gradually getting worse over last few months and had limited cognition, appetite and mobility. She was walker. Overall she had a very poor quality of life I updated them with patient's current condition including cardiac arrest, suspected anoxic injury, pneumonia, shock, pneumothorax, YOGESH. I also updated them with current treatment plan including targeted temperature management protocol,, expected prognosis and different potential outcomes. They told me that patient would not want to continue on life support considering her poor quality of life to start with and now multiple medical problems with overall poor prognosis of getting back to her baseline. They feel that patient at this point would want to in peace and comfort. They states that they have discussed among themselves and have decided in accordance with pt's wishes, to discontinue all medical therapy and institute comfort measures only. I have explained to them that I will use opioids, anxiolytics and other agents on as needed basis to promote comfort and discontinue all medical therapy, lab testing and invasive monitoring. Patient will eventually . They verbalized understanding and agreed to proceed. Meeting was done and presence of patient's nurse Kayleen. I will notify primary hospitalist attending and placed orders for comfort care in the chart. Total Critical Care Time - 45 minutes Due to a high probability of clinically significant, life threatening deterioration, the patient required my highest level of preparedness to intervene emergently and I personally spent this critical care time directly and personally managing the patient. This critical care time included obtaining a history; examining the patient; pulse oximetry; ordering and review of studies; arranging urgent treatment with development of a management plan; evaluation of patient's response to treatment; frequent reassessment; and discussions with other providers. It was exclusive of separately billable procedures and treating other patients and teaching time. Please see Assessment and Plan section and the rest of the note for further information on patient assessment and treatment [facility] Consult Note Consult date: 06/17/24 Reason for consult: Cardiac arrest, acute respiratory failure HPI: Leonor Vuong is a 73 year old female with past medical history of Parkinson's disease was brought to emergency department by EMS after sustaining a cardiac arrest. Patient has history of Parkinson's and has apparently been getting weaker in last few months as per reports from the family. Patient was found slumped over by EMS and had not really been doing much activity for approximately 1 hour patient had no pulse when EMS arrived they started CPR and intubated the patient. Patient had return of spontaneous circulation after receiving epi and CPR patient although details of code unknown at as I do not have access to EMS report. She Was unresponsive upon arrival to the emergency department. A central venous catheter was placed and patient was started on vasopressors and was given IV fluids. CT scan showed patient had a right pneumothorax and a chest tube was placed. ET tube was repositioned. EKG showed sinus tachycardia with prolonged QTC and nonspecific T-wave changes. She had mixed acidosis on ABG Patient was started on sedation, chemical ventilation and vasopressors. She was also started on TTM protocol as she was unresponsive and comatose after resuscitation. Head CT was negative for any acute change. She was started on antibiotics for aspiration pneumonia. Patient was admitted to ICU for further evaluation management. This morning she continues to be on Versed fentanyl for sedation. She is being cold. She is on Levophed. Obviously She is unable provide any other meaningful history or review of systems. History was obtained from sign-out from ER, hospitalist physician and chart review. Review of Systems Review of Systems: ROS unobtainable: Yes unobtainable due to endotracheal tube, unobtainable due to medical condition and unobtainable due to mental status PMFSH Past Medical History Medical History (Updated 06/17/24 @ 09:56 by Jl Rodriguez MD) Parkinsons disease Surgical History Surgical History History of splenectomy Hx of tonsillectomy Family History Family History Other Unknown family medical history Social History Social History Social History: Patient lives at home with her of 36 years (they have been together for 46 years). She is a lifelong nonsmoker and does not have any history of alcohol or drug use. Her and her raised 4 children. Two of the patient's children 1 due to motor vehicle collision another 1 due to brain tumor. She has 2 daughter still living. 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 Code status: DNR Surrogate decision maker: Bill () Smoking status: Never smoker Alcohol intake: never Substance use: never Living arrangements: with family Meds Home Medications and Allergies Home Medications Medication Instructions Recorded Confirmed Type alendronate 70 mg tablet 70 mg PO 06/17/24 History alprazolam 0.5 mg tablet 0.5 mg PO TID 06/17/24 06/17/24 History carbidopa 25 mg-levodopa 100 mg 3.5 tablet PO QID 06/17/24 06/17/24 History tablet Allergies Allergy/AdvReac Type Severity Reaction Status Date / Time Penicillins Allergy Unknown Unknown Verified 11/05/22 10:52 codeine AdvReac Unknown Unknown Verified 11/05/22 10:52 Vital Signs Vital Signs - 24 hr 06/16/24 21:17 06/16/24 21:40 06/16/24 21:40 Temperature 36.6 C Pulse Rate 68 132 H Respiratory Rate 16 Blood Pressure 39/24 L Pulse Oximetry 20 L 98 Oxygen Delivery Bag Valve Mask BiPAP Fraction of Inspired Oxygen 06/16/24 21:40 06/16/24 21:59 06/16/24 21:15 Temperature Pulse Rate 126 H 136 H 135 H Respiratory Rate 26 H Blood Pressure 124/76 73/50 L Pulse Oximetry 99 98 Oxygen Delivery Mechanical Ventilation Fraction of Inspired Oxygen 100 06/16/24 22:05 06/16/24 22:26 06/16/24 22:29 Temperature 35.7 C L Pulse Rate 133 H 132 H Respiratory Rate 29 H Blood Pressure 137/70 133/75 Pulse Oximetry 94 92 Oxygen Delivery Mechanical Ventilation Fraction of Inspired Oxygen 100 06/16/24 22:50 06/16/24 22:55 06/16/24 22:30 Temperature Pulse Rate 127 H 128 H 132 H Respiratory Rate 31 H 29 H Blood Pressure 133/75 Pulse Oximetry Oxygen Delivery Fraction of Inspired Oxygen 06/16/24 23:00 06/16/24 23:27 06/16/24 23:15 Temperature Pulse Rate 127 H 121 H 126 H Respiratory Rate 22 H Blood Pressure 126/67 107/76 Pulse Oximetry 95 91 Oxygen Delivery Mechanical Ventilation Fraction of Inspired Oxygen 100 06/17/24 01:12 06/17/24 02:13 06/17/24 01:30 Temperature 37.6 C H Pulse Rate 120 H 118 H 117 H Respiratory Rate 18 20 25 H Blood Pressure 113/73 111/71 Pulse Oximetry 92 95 Oxygen Delivery Fraction of Inspired Oxygen 06/17/24 01:30 06/17/24 03:35 06/17/24 03:35 Temperature 37.6 C Pulse Rate 122 H 116 H Respiratory Rate 28 H 17 Blood Pressure 111/80 Pulse Oximetry 98 98 Oxygen Delivery Mechanical Ventilation Fraction of Inspired Oxygen 100 06/17/24 03:54 06/17/24 03:59 06/17/24 04:00 Temperature Pulse Rate 141 H 138 H 135 H Respiratory Rate 24 H Blood Pressure 158/85 H 158/85 H 132/67 Pulse Oximetry 97 Oxygen Delivery Fraction of Inspired Oxygen 06/17/24 04:05 06/17/24 04:21 06/17/24 01:15 Temperature Pulse Rate 129 H 123 H 123 H Respiratory Rate Blood Pressure 130/72 122/83 Pulse Oximetry 94 Oxygen Delivery Mechanical Ventilation Fraction of Inspired Oxygen 100 06/17/24 03:30 06/17/24 04:27 06/17/24 05:00 Temperature Pulse Rate 113 H 121 H 102 H Respiratory Rate 24 H Blood Pressure 120/86 Pulse Oximetry 97 96 94 Oxygen Delivery Mechanical Ventilation Mechanical Ventilation Fraction of Inspired Oxygen 100 100 06/17/24 05:20 06/17/24 06:00 06/17/24 05:20 Temperature Pulse Rate 105 H 115 H 105 H Respiratory Rate 10 L 24 H 10 L Blood Pressure Pulse Oximetry Oxygen Delivery Fraction of Inspired Oxygen 06/17/24 06:00 06/17/24 05:30 06/17/24 05:45 Temperature Pulse Rate 115 H 103 H 111 H Respiratory Rate 24 H Blood Pressure 142/97 H 146/78 H Pulse Oximetry Oxygen Delivery Fraction of Inspired Oxygen 06/17/24 06:00 06/17/24 06:15 06/17/24 06:30 Temperature Pulse Rate 115 H 122 H 117 H Respiratory Rate Blood Pressure 146/80 H 136/82 111/68 Pulse Oximetry Oxygen Delivery Fraction of Inspired Oxygen 06/17/24 05:15 06/17/24 05:21 06/17/24 05:31 Temperature 37.7 C H 37.5 C Pulse Rate 104 H 101 H Respiratory Rate 12 10 L Blood Pressure 78/54 L 142/97 H Pulse Oximetry Oxygen Delivery Mechanical Ventilation Fraction of Inspired Oxygen 100 06/17/24 05:45 06/17/24 06:00 06/17/24 06:15 Temperature 37.4 C 37.5 C 37.4 C Pulse Rate 111 H 114 H 123 H Respiratory Rate 24 H 24 H 24 H Blood Pressure 146/78 H 146/80 H 136/82 Pulse Oximetry 100 100 100 Oxygen Delivery Fraction of Inspired Oxygen 06/17/24 06:30 06/17/24 06:45 06/17/24 07:00 Temperature 37.4 C 37.3 C 37.1 C Pulse Rate 117 H 119 H 118 H Respiratory Rate 24 H 24 H 24 H Blood Pressure 111/68 109/68 107/73 Pulse Oximetry Oxygen Delivery Fraction of Inspired Oxygen 06/17/24 08:02 06/17/24 08:08 Temperature Pulse Rate 110 H Respiratory Rate Blood Pressure Pulse Oximetry 96 96 Oxygen Delivery Mechanical Ventilation Mechanical Ventilation Fraction of Inspired Oxygen 60 60 Exam Narrative: General: Pt is sedated, intubated and on mechanical ventilation. Cachectic old frail female, no significant muscle mass Lungs/Chest: Trachea central Coarse BS B/L, No crackles or wheezing. Chest tube on the right side on suction with and leak Cardiac: RRR. Normal S1 S2. Systolic murmur present Circulation: Both feet are cold Abdomen: Decreased bowel sounds. Malnourished Soft. NT. ND. Extremities: No clubbing, cyanosis or edema. Feet are cold : Rubin in place Neurologic: Unable to assess due to sedation. Withdraws with lower extremity to painful stimuli. PERRL Results Labs 06/17/24 08:36 06/17/24 08:36 Labs: Short CBC 06/16/24 Range/Units 21:49 WBC 12.8 H (4.5-10.0) K/mm3 Hgb 8.8 L D (12.0-15.0) g/dL Hct 29.5 L (37.0-47.0) % Plt Count 257 (150-375) k/mm3 BMP 06/16/24 06/17/24 21:49 08:36 Sodium 143 143 Potassium 3.4 4.0 Chloride 108 H 110 H Carbon Dioxide 23 30 BUN 37 H D 36 H Creatinine 1.10 H 1.10 H Glucose 197 H 128 H Calcium 9.5 9.1 Cardiac Enzymes 06/16/24 06/17/24 06/17/24 Range/Units 21:49 01:10 06:06 Total Creatine Kinase (30-135) U/L Troponin I 0.019 0.045 H* D 0.209 H* D (0.000-0.034) ng/mL 06/17/24 Range/Units 08:31 Total Creatine Kinase 123 (30-135) U/L Troponin I (0.000-0.034) ng/mL Liver Function 06/16/24 06/17/24 Range/Units 21:49 08:36 Total Bilirubin 1.2 1.2 (0.2-1.3) mg/dL AST 30 28 (14-36) U/L ALT 18 18 (6-35) U/L Alkaline Phosphatase 76 75 (38-126) U/L Albumin 3.7 3.3 L (3.5-5.1) g/dL Urine 06/16/24 Range/Units 22:20 Urine Color Yellow (Yellow) Urine Appearance Clear (Clear) Urine pH 7.0 (5.0-9.0) Ur Specific [place] 1.018 (1.001-1.035) Urine Protein 2+ H (Negative) mg/dL Urine Glucose (UA) Negative (Negative) mg/dL Hospitalist MIPS Advance Care Plan I have confirmed that the patient's Advanced Care Plan is present, code status is documented, or surrogate decision maker is listed in patient medical record.: Yes Medication Reconciliation I have utilized all available resources to obtain, update and review the patients current medications (includes all prescriptions, OTC, herbals, cannabis, and nutritional supplements).: Yes
[2024-06-17 10:17] LABS: Immature Reticulocyte Fraction 10.1 % (3.0-15.9); Reticulocyte Hemoglobin Conten 23.5 pg (28.2-36.6); Reticulocyte Percent 1.09 % (0.7-4.3); Reticulocytes Absolute 0.05 10^6/uL (0.02-0.10)
[2024-06-17 11:01] LABS: Folic Acid 5.9 ng/mL (2.76->20)
--- NOTE | 2024-06-17 11:13 | PC.NURSE ---
Spoke with Roland at [facility] for ICU 5 as family has decided to withdraw care. Patient maintained on mechanical ventilator at this time, awaiting preist for last rights.
--- NOTE | 2024-06-17 11:17 | PC.NURSE ---
Spoke with Lionel at [facility], patient does not qualify for DCD due to age and patient has cough/gag/and pupils are reactive.
--- NOTE | 2024-06-17 13:19 | PC.NURSE ---
Patient with family at bedside at 1319.
--- NOTE | 2024-06-17 14:23 | PM.DDS ---
Discharge Summary Date and Time Date of : 06/17/24 Time of : 13:19 Provider Pronounced By: 2 RNs Name of First RN That Pronounced: Sabrina Prince RN Name of Second RN That Pronounced: Kayleen Rodriguez RN Probable Cause of Probable Cause of : Septic shock with cardiac arrest Summary Hospital Course: Patient became unresponsive and EMS called. Patient was having agonal respirations and no palpable pulse. She had 1 round of CPR including epinephrine and was intubated in the field. In the ED, she was hypotensive 39/24 treated with IV fluids and pressors. Head CT showing no acute findings. CT chest showing moderate sized right PTX and chest tube placed. She also had diffuse lung disease consistent with PNA. Patient started on IV abx and admitted to the ICU. Patient started on targeted temperature management. Family was very attentive. They were at bedside and updated on the clinical course. They decided to withdraw care. Patient was kept comfortable and was extubated on 06/17/24 and passed a short time later. 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
[2024-06-20 07:22] LABS: Protein, Total 6.2 g/dL (6.1-8.1)
[2024-06-20 20:55] LABS: Albumin 2.9 g/dL (3.8-4.8); Alpha 1 Globulin 0.5 g/dL (0.2-0.3); Alpha 2 Globulin 0.8 g/dL (0.5-0.9); Beta 1 Globulin 0.5 g/dL (0.4-0.6); Gamma Globulin 1.1 g/dL (0.8-1.7)
== END 2024-06-17 13:19 | disposition expired | DRG 871 ==
LOC: ANHED 06-17 03:31 → ANHICU 06-17 04:13
PROVIDERS: Internal Medicine; Admitting Provider Internal Medicine; Emergency Provider Emergency Medicine; PCP Family Medicine; Visit Provider Internal Medicine
DX: A41.9 Sepsis, unspecified organism (principal); E43 Unspecified severe protein-calorie malnutrition; J18.9 Pneumonia, unspecified organism; J96.01 Acute respiratory failure with hypoxia; R65.21 Severe sepsis with septic shock; J96.02 Acute respiratory failure with hypercapnia; E87.21 Acute metabolic acidosis; N17.9 Acute kidney failure, unspecified; Z68.1 Body mass index [BMI] 19.9 or less, adult; J93.9 Pneumothorax, unspecified; I46.9 Cardiac arrest, cause unspecified; D64.9 Anemia, unspecified; G20.A1 Parkinson's disease without dyskinesia, without mention of fluctuations; Z66 Do not resuscitate; K58.9 Irritable bowel syndrome, unspecified; F41.9 Anxiety disorder, unspecified; K21.9 Gastro-esophageal reflux disease without esophagitis; F03.90 Unspecified dementia, unspecified severity, without behavioral disturbance, psychotic disturbance, mood disturbance, and anxiety; D50.9 Iron deficiency anemia, unspecified
CPT/HCPCS: 32551; 36415; 36556; 36600; 70450; 71250; 72125; 74176; 80053; 81001; 82550; 82607; 82728; 82746; 82805; 82948; 83540; 83550; 83605; 83735; 83880; 84100; 84145; 84155; 84165; 84443; 84484; 85018; 85025; 85027; 85046; 85055; 85610; 85730; 87040; 87070; 87181; 87205; 87637; 87641; 93005; 94002; 94003; 96361; 96365; 96367; 96368; 96374; 99291; A9270; J0692; J1644; J2250; J2470; J3010; J3370; J7030; J7040; J7120